=== PATIENT | female | born 1945 | race Caucasian/White ===

== ENCOUNTER → 2018-09-29 06:37 | Outpatient (CLI) | payer MEDICARE, SELFPAY ==
[2018-09-29 08:11] LABS: Add Manual Diff / Slide Review NO; Basophils Percent Auto 1.1 % (0-2); Hematocrit 37.6 % (36-46); Hemoglobin 12.7 g/dL (12.0-16.0); Lymphocytes Percent Auto 31.4 % (25-40); Mean Corpuscular HGB Conc 33.8 % (30-36); Mean Corpuscular Hemoglobin 33.9 PG (26-34); Mean Corpuscular Volume 100.5 fL (80-100); Monocytes Percent Auto 11.8 % (3-14); Neutrophils Absolute Auto 2500 /uL (3000-5900); Neutrophils Percent Auto 51.7 % (50-75); Platelet Count 215 X10^3/uL (150-400); Red Blood Cell Count 3.74 X10^6/uL (4.0-5.2); White Blood Cell Count 4.9 X10^3/uL (4.5-11.0)
[2018-09-29 08:17] LABS: Hemoglobin A1C% w Est Avg Glu 5.5 % (4.0-6.0)
[2018-09-29 08:30] LABS: Cholesterol 187 mg/dL (140-199); HDL Cholesterol 56 mg/dL (40-60); LDL Cholesterol Calculated 96 mg/dL (<100); Triglycerides 174 mg/dL (35-150)
[2018-09-29 09:01] LABS: Thyroid Stimulating Hormone 1.98 uIU/mL (0.47-4.68)
== END ==
PROVIDERS: PCP Family Medicine; Visit Provider Family Medicine
DX: I10 Essential (primary) hypertension (principal); Z13.1 Encounter for screening for diabetes mellitus
CPT/HCPCS: 36415; 80061; 83036; 84443; 85025

== ENCOUNTER 2019-03-10 06:57 | Emergency (ER) | payer MEDICARE, SELFPAY ==
--- NOTE | 2019-03-10 07:06 | ED.GENADULT ---
HPI - General Adult General Chief complaint: Upper Respiratory Symptoms Stated complaint: constant cough, mucous is green Time Seen by Provider: 03/10/19 07:05 Source: patient Mode of arrival: ambulatory Limitations: no limitations History of Present Illness HPI narrative: 73-year-old female here for evaluation of sinus congestion and sore throat in productive cough for the past week. No fevers. Has been doing [id number] decongestants at home. No recent travel. She states that the cough is worse at night. No rashes. Related Data Home Medications Medication Instructions Recorded Confirmed ASPIRIN (Aspirin Ec) 81 mg PO Q DAY #0 04/12/07 09/30/18 atenolol 25 mg PO QDAY #0 07/01/17 09/30/18 Previous Rx's Medication Instructions Recorded atorvastatin 40 mg tablet 40 mg PO HS #90 tab 10/12/18 losartan 100 mg tablet 100 mg PO Q DAY #90 tab 11/02/18 benzonatate [Tessalon Perles] 100 mg PO BID-TID PRN #20 cap 03/10/19 Allergies Allergy/AdvReac Type Severity Reaction Status Date / Time ampicillin [AMPICILLIN] Allergy Intermediate hives Unverified 03/11/18 11:59 Sulfa (Sulfonamide Allergy Intermediate Unverified 03/11/18 11:59 Antibiotics) [SULFA (SULFONAMIDE ANTIBIOTICS)] Review of Systems Constitutional Denies fever(s) and Denies headache(s) ENT Ears, Nose, Mouth, and Throat: Denies ear discharge, Denies headache(s), Reports sinus pressure, Reports sore throat and Reports throat swelling Respiratory Reports cough Gastrointestinal Gastrointestinal: Denies abdominal pain, Denies nausea and Denies vomiting Genitourinary Denies dysuria Musculoskeletal Denies myalgias and Denies arthralgias Integumentary/Breasts Denies rash Neurologic Denies headache(s) Allergic/Immunologic Denies urticaria and Reports throat swelling [facility] Medical History Breast cancer (Chronic ~2012) Coronary artery disease (Chronic ~2003) Foot pain (Chronic) Frequent UTI (Chronic) Hyperlipidemia (Chronic) Hypertension (Chronic) Surgical History (Updated 10/01/18 @ 07:03 by Tova Hays DO) History of lumpectomy (Resolved ~2012) History of mitral valve replacement (Resolved ~2003) S/P cataract extraction (Resolved) History of hip replacement (~2012) Status post coronary artery bypass graft (~2003) Social History marital status: lives independently: Yes 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[employer]) Smoking Status: Never smoker alcohol intake: current substance use type: does not use Social History marital status: lives independently: Yes 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[employer]) Smoking Status: Never smoker alcohol intake: current substance use type: does not use Exam Initial Vital Signs Initial Vital Signs: Vital Signs Temperature 98.7 F 03/10/19 07:07 Pulse Rate 93 H 03/10/19 07:07 Respiratory Rate 19 03/10/19 07:07 Blood Pressure 163/90 H 03/10/19 07:07 Pulse Oximetry 93 03/10/19 07:07 Const General: cooperative, healthy appearing, comfortable, well developed, well groomed and No acute distress Orientation: alert, awake and oriented x3 HENMT Head: normal to inspection and normocephalic Ears: TM's normal bilaterally Nose: external nose normal Face and sinus: normal facial exam Mouth: oral mucosae normal Throat: posterior oropharynx normal Resp Effort & Inspection: normal respiratory effort Auscultation: clear to auscultation bilaterally Cardio Rate: regular rate Rhythm: regular rhythm Pulses: radial pulses present Skin Rashes: no rashes Neuro General: alert, awake and oriented x3 Cognition: normal cognition Speech: speech normal Extrem General: normal to inspection and capillary refill normal Psych Appearance: grossly normal and well kempt Course Vital Signs - 8 hr 03/10/19 07:07 Temperature 98.7 F Pulse Rate 93 H Respiratory Rate 19 Blood Pressure 163/90 H Pulse Oximetry 93 Medical Decision Making MDM Narrative Medical decision making narrative: Nontoxic appearing lungs are clear. Afebrile. Low suspicion for pneumonia or flu. Suspect viral URI. We did discuss the use of decongestants. Will send home with Bindu Swanson. Informed her that this will not take her cough away but should help with the cough. She was given return precautions and follow-up instructions. She expressed understanding agreement plan. Discharge Plan Departure Patient Disposition: Home Clinical Impression: Upper respiratory infection Qualifiers: URI type: unspecified URI Qualified Code(s): J06.9 - Acute upper respiratory infection, unspecified Instructions: DI for Viral Upper Respiratory Infection -- Adult Activity Restrictions/Additional Instructions: Increased your fluid intake. I do recommend that you purchase an [id number]-[id number] decongestant such as Claritin or Jenise or Zyrtec. You can use the generic version of these medications. Take them as directed. Contact your primary care doctor for follow-up. Return to the emergency department for any new or worsening symptoms Prescriptions: New benzonatate [Tessalon Perles] 100 mg capsule 100 mg PO BID-TID PRN (Reason: cough) Qty: 20 RF: 0 No Action ASPIRIN (Aspirin Ec) 81 mg PO Q DAY Qty: 0 RF: 0 atenolol 25 MG tablet 25 mg PO QDAY Qty: 0 RF: 0 atorvastatin [Lipitor] 40 mg tablet 40 mg PO HS Qty: 90 RF: 3 losartan 100 mg tablet 100 mg PO Q DAY Qty: 90 RF: 2 Referrals: Tova Hays DO [Primary Care Provider] -
[2019-03-10 07:07] VITALS: BP 163/90; PULSE 93; RESP 19; TEMP 37.1; O2SAT 93; BMI 24.2
== END 2019-03-10 07:26 | disposition home or self-care (01) ==
PROVIDERS: Emergency Provider Emergency Medicine; PCP Family Medicine
DX: J06.9 Acute upper respiratory infection, unspecified (principal)
CPT/HCPCS: 99282

== ENCOUNTER → 2019-06-17 09:22 | Outpatient (CLI) | payer OTHER, SELFPAY ==
--- NOTE | 2019-06-17 | DI.RAD.S_ITS ---
PROCEDURE: XR ANKLE LT MIN 3V INDICATIONS: Left ankle injury TECHNIQUE: 3 views of the ankle were acquired. COMPARISON: None. FINDINGS: Bones: No fractures or dislocations. Ankle mortise is normally aligned. No suspicious bony lesions. Tibiotalar degenerative spurring. Posterior and plantar calcaneal spurs. There is also diffuse hindfoot and midfoot joint degeneration. There is irregularity at the tip of the lateral malleolus although this technically age-indeterminate the absence of prior studies Soft tissues: Lateral soft tissue swelling IMPRESSION: Lateral soft tissue swelling and cortical irregularity at the tip of the lateral limb loss. Findings suspicious for lateral malleolar tip fracture although limited evaluation given superimposed degenerative changes. If clinically warranted, followup short interval radiographs in 10 days could be performed to assess for healing sclerosis, or further evaluation with MRI. Chronic degenerative changes as above. Dictated by: Jean Flynn M.D. on 06/17/2019 at 11:40 Approved by: Jean Flynn M.D. on 06/17/2019 at 11:42
== END ==
PROVIDERS: PCP Family Medicine; Visit Provider Physician Assistant
DX: S99.912A Unspecified injury of left ankle, initial encounter (principal); M19.072 Primary osteoarthritis, left ankle and foot; M77.32 Calcaneal spur, left foot; M79.89 Other specified soft tissue disorders; X58.XXXA Exposure to other specified factors, initial encounter
CPT/HCPCS: 73610

== ENCOUNTER → 2019-08-25 07:14 | Outpatient (CLI) | payer MEDICARE, OTHER, SELFPAY ==
--- NOTE | 2019-08-25 | DI.MG.S_ITS ---
BILATERAL DIGITAL SCREENING MAMMOGRAM 3D/2D WITH CAD: 08/25/2019 CLINICAL: Routine screening. Personal history of right breast cancer. Comparison is made to exams dated: 11/25/2017 mammogram, 10/08/2016 mammogram, and 10/21/2016 mammogram - [facility]. There are scattered fibroglandular elements in both breasts. Current study was also evaluated with a Computer Aided Detection (CAD) system. There are benign post operative findings in the right breast. No significant masses, calcifications, or other findings are seen in either breast. There has been no significant interval change. IMPRESSION: There is no mammographic evidence of malignancy. A 1 year screening mammogram is recommended. This exam was interpreted at Station ID: [id number]. NOTE: For mammograms, a report in lay terms will be sent to the patient. Approximately 15% of breast malignancies will not be visualized mammographically. In the management of a palpable breast mass, a negative mammogram must not discourage biopsy of a clinically suspicious lesion. Electronically Signed By: Ayaka milton/cee:08/25/2019 08:45:21 letter sent: Normal Exam ACR BI-RADS Category 2: Benign Finding(s) [id number]
== END ==
PROVIDERS: PCP Family Medicine; Visit Provider Family Medicine
DX: Z12.31 Encounter for screening mammogram for malignant neoplasm of breast (principal); Z85.3 Personal history of malignant neoplasm of breast
CPT/HCPCS: 77063; 77067

== ENCOUNTER 2019-11-25 20:38 | Emergency (ER) | payer MEDICARE, SELFPAY ==
[2019-11-25 20:41] VITALS: BP 170/86; PULSE 78; RESP 18; TEMP 36.6; O2SAT 96
--- NOTE | 2019-11-25 20:41 | ED_ITS ---
HPI - Back Pain/Injury General Chief Complaint: Back Pain/Injury Stated Complaint: Fall, rib and finger pain Time Seen by Provider: 11/25/19 20:39 Source: patient Mode of arrival: Ambulatory Limitations: no limitations History of Present Illness HPI Narrative: 74-year-old female nonsmoker with cardiac history a presents with a chief complaint of left-sided rib pain and left 5th finger pain after she tripped on a rug earlier today. Her left-sided ribs hurt worse with deep breath, palpation or motion of her torso. She states that her left 5th finger was grossly angulated but she pulled it back in place somewhat. She is unable to make a fist completely as her left 5th finger still is in a nonanatomic position. She denies numbness, tingling or weakness. She states that she did not hit her head and has no neck or back pain. She has full recall and denies pain in her pelvis, hips, knees, ankles, or feet. MD Complaint: fall Onset (ago): hour(s) Duration: constant and progressively worsening Similar Symptoms Previously: No Location: left upper back Severity: moderate Quality: sharp Exacerbating factors: movement and deep breaths Context: fall and trauma Treatments prior to arrival: cold therapy Related Data Home Medications Medication Instructions Recorded Confirmed ASPIRIN (Aspirin Ec) 81 mg PO Q DAY #0 04/12/07 10/04/19 atenolol 25 mg PO QDAY #0 07/01/17 10/04/19 Previous Rx's Medication Instructions Recorded atorvastatin 40 mg tablet 40 mg PO HS #90 tab 10/12/18 benzonatate [Tessalon Perles] 100 mg PO BID-TID PRN #20 cap 03/10/19 losartan 100 mg tablet 100 mg PO DAILY #90 tab 08/12/19 hydrocodone-acetaminophen 1 tab PO Q4-6H PRN #20 tab 11/25/19 Allergies Allergy/AdvReac Type Severity Reaction Status Date / Time ampicillin [AMPICILLIN] Allergy Intermediate hives Verified 10/04/19 08:40 Sulfa (Sulfonamide Allergy Intermediate Verified 10/04/19 08:40 Antibiotics) [SULFA (SULFONAMIDE ANTIBIOTICS)] Review of Systems Constitutional Constitutional: Denies chills, Denies fatigue, Denies fever(s), Denies frequent falls, Denies lethargy and Denies weakness Eyes Eyes: Denies change in vision, Denies eye discharge, Denies irritation and Denies loss of vision ENT Ears, Nose, Mouth, and Throat: Denies change in voice, Denies dizziness, Denies neck pain, Denies sore throat and Denies throat swelling Cardiovascular Cardiovascular: Denies chest pain, Denies irregular heart rhythm, Denies lightheadedness, Denies palpitations, Denies dyspnea, Denies dyspnea on exertion and Denies orthopnea Respiratory Respiratory: Denies cough, Reports pain with cough, Denies dyspnea, Denies dyspnea on exertion and Denies wheezing Gastrointestinal Gastrointestinal: Denies abdominal pain, Denies change in bowel habits, Denies diarrhea, Denies nausea and Denies vomiting Genitourinary Genitourinary: Denies hematuria, Denies flank pain, Denies urinary incontinence and Denies urinary urgency Musculoskeletal Musculoskeletal: Denies back pain, Reports joint swelling, Reports limited range of motion, Denies muscle weakness, Denies neck pain, Denies numbness and Denies tingling Integumentary/Breasts Skin/Breast: Denies pruritus, Denies erythema, Denies rash and Denies wounds Neurologic Neurologic: Denies behavioral changes, Denies confusion, Denies dizziness, Denies frequent falls, Denies loss of vision, Denies numbness, Denies tingling and Denies weakness Psychiatric Psychiatric: Denies anxiety, Denies behavioral changes, Denies confusion, Denies depression, Denies homicidal ideation and Denies suicidal ideation Endocrine Endocrine: Denies fatigue, Denies flushing and Denies palpitations Hematologic/Lymphatic Hematologic/Lymphatic: Denies easy bruising Allergic/Immunologic Allergic/Immunologic: Denies urticaria, Denies throat swelling and Denies wheezing Patient History Medical History Breast cancer (Chronic ~2012) Coronary artery disease (Chronic ~2003) Foot pain (Chronic) Frequent UTI (Chronic) Hyperlipidemia (Chronic) Hypertension (Chronic) Surgical History History of hip replacement (~2012) History of lumpectomy (Resolved ~2012) History of mitral valve replacement (Resolved ~2003) S/P cataract extraction (Resolved) Status post coronary artery bypass graft (~2003) Social History marital status: lives independently: Yes occupational status: employed Smoking Status: Never smoker alcohol intake: current substance use type: does not use Smoking Status: Never smoker Substance Use Type: does not use Exam Narrative Exam Narrative: GENERAL: [74] year old patient appears stated age. Well- nourished, well-developed patient, in mild distress. GCS 15 HEAD: Atraumatic. Normocephalic. EYES: Pupils equal round and reactive. Extraocular motions intact. No scleral icterus. No injection or drainage. ENT: Nose without bleeding, purulent drainage. Throat without erythema, tonsillar hypertrophy or exudate. Airway patent. NECK: Trachea midline. Non tender CARDIOVASCULAR: Regular rate and rhythm without murmurs, gallops, or rubs. RESPIRATORY: Left lateral ribs tender to palpation, no swelling, bruising or crepitance. Clear to auscultation. Breath sounds equal bilaterally. No wheezes, rales, or rhonchi. GASTROINTESTINAL: Abdomen soft, non-tender, nondistended. EXTREMITIES: Left 5th finger obviously deformed, closed and isolated. Noted swelling and ecchymosis surrounding PIP No edema or joint tenderness. BACK: Nontender without deformity or crepitance. No flank tenderness. NEURO: AOx3. SKIN: No rash or erythema of visible areas Initial Vital Signs Initial Vital Signs: Vital Signs Temperature 97.9 F 11/25/19 20:41 Pulse Rate 78 11/25/19 20:41 Respiratory Rate 18 11/25/19 20:41 Blood Pressure 170/86 H 11/25/19 20:41 Pulse Oximetry 96 11/25/19 20:41 Procedures Nerve Block Nerve Block 1: Time out performed: No Local Anesthetic: lidocaine 1% Amount of anesthesia used (mL): 2 Side: left Nerve Blocks: digital Procedure Successful: Yes Patient Tolerated Procedure: Well Complications: none Orthopedic Joint Reduction Left Pinky Dislocation: Time Out Performed: Yes Side: left Joint Reduction Location: finger Analgesia: nerve block Local Anesthesia: lidocaine 1% Technique used: traction/counter-traction and direct manipulation Post-reduction neuro exam: intact Post-reduction vascular: intact Post Reduction X-Ray Obtained: No Splint Applied: Yes Patient Tolerated Procedure: Well Orthopedic Splinting/Casting Injury #1: Side: left Upper Extremity Injury Location: finger Upper Extremity Immobilizer: finger (other) Post splinting neuro exam: intact Post splinting vascular exam: intact Placed by: Nursing Course Orders Ordered: ED Orders 11/25/19 20:46 XR finger LT min 2V Stat XR ribs LT min 3V w CXR1V Stat Discontinued Medications Hydrocodone Bitart/Acetaminophen (Vicodin 5/325 Prepack) 1 bottle MISC SEEINSTR ONE Stop: 11/25/19 21:51 Last Admin: 11/25/19 21:56 Dose: 1 bottle Documented by: RICA Lidocaine HCl (Xylocaine 1%) 1 ml SUBCUT NOW ONE Stop: 11/25/19 21:26 Ondansetron HCl (Zofran Odt Prepack) 1 bottle MISC SEEINSTR ONE Stop: 11/25/19 21:51 Last Admin: 11/25/19 21:56 Dose: 1 bottle Documented by: RICA Vital Signs Vital signs: Vital Signs - 8 hr 11/25/19 20:41 11/25/19 22:07 Temperature 97.9 F Pulse Rate 78 75 Respiratory Rate 18 17 Blood Pressure 170/86 H 150/76 H Pulse Oximetry 96 100 Discharge Plan Departure Patient Disposition: Home Clinical Impression: Dislocation of finger PIP joint Qualifiers: Encounter type: initial encounter Qualified Code(s): S63.289A - Dislocation of proximal interphalangeal joint of unspecified finger, initial encounter Contusion of ribs Qualifiers: Encounter type: initial encounter Laterality: left Qualified Code(s): S20.212A - Contusion of left front wall of thorax, initial encounter Discharge Date/Time: 11/25/19 22:09 Instructions: DI for Finger Dislocation, DI for Rib Contusion Activity Restrictions/Additional Instructions: *You have been diagnosed with [left pinky finger dislocation and likely soft tissue injury as well as left-sided rib contusions] *What to do: *Take medications as directed *Follow up with your primary care provider in 2-3 days, call for an appointment. Let them know you were seen in the Emergency Department and that we ask that you be seen in follow up. 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
--- NOTE | 2019-11-25 20:46 | DI.RAD.S_ITS ---
PROCEDURE: XR FINGER LT MIN 2V INDICATIONS: obvious deformity s/p fall TECHNIQUE: AP hand, 2 views of the left 5th finger(s) acquired. COMPARISON: None. FINDINGS: Bones: Background of multilevel degenerative changes throughout the left hand. There is dorsal, ulnar subluxation of the left fifth finger at the level of the proximal interphalangeal joint with flexion at the left fifth metacarpophalangeal joint and extension at the proximal interphalangeal joint. Suggestion of possible nondisplaced fracture at the head of the left fifth finger proximal phalanx. There is also suggestion of cortical irregularity involving the head of the fifth metacarpal. There is overlying soft tissue edema. No suspicious bony lesions. Soft tissues: No suspicious soft tissue calcifications. IMPRESSION: 1. Dorsal, ulnar subluxation of the left fifth finger at the proximal interphalangeal joint with possible nondisplaced fracture involving the head of the fifth proximal phalanx. 2. Possible nondisplaced fracture at the head of the fifth metacarpal. Recommend correlating with examination for point tenderness in this region. Dictated by: Rolando Angeles M.D. on 11/25/2019 at 21:25 Approved by: Rolando Angeles M.D. on 11/25/2019 at 21:30
--- NOTE | 2019-11-25 20:46 | DI.RAD.S_ITS ---
PROCEDURE: XR RIBS LT MIN 3V W CXR1V INDICATIONS: fall with rib pain TECHNIQUE: 2 views of the left ribs were acquired, along with a single view chest. COMPARISON: [facility], , CHEST 2 VIEW, 03/09/2013, 9:45. FINDINGS: Surgical changes and devices: Multiple median sternotomy wires are intact. Stable postsurgical changes from prior valvular replacement and coronary revascularization procedure Bones and chest wall: No fractures or dislocations. No suspicious bony lesions. Overlying soft tissues appear unremarkable. Lungs and pleura: No pleural effusions or pneumothorax. Lungs appear clear. Mediastinum: Mediastinal contours appear normal. Heart size is normal. IMPRESSION: Chest without acute cardiopulmonary abnormality. No acute, displaced rib fractures identified. Dictated by: Rolando Angeles M.D. on 11/25/2019 at 21:22 Approved by: Rolando Angeles M.D. on 11/25/2019 at 21:25
[2019-11-25] MEDS: ONDANSETRON 4 MG ODT PREPACK 1 BOTTLE MISC (21:56)
[2019-11-25] MEDS: HYDROCODONE/ACET 5/325 PREPACK 1 BOTTLE MISC (21:56)
[2019-11-25 22:07] VITALS: BP 150/76; PULSE 75; RESP 17; O2SAT 100
== END 2019-11-25 22:09 | disposition home or self-care (01) ==
PROVIDERS: Emergency Provider Emergency Medicine; Family Provider Family Medicine; PCP Family Medicine
DX: S63.287A Dislocation of proximal interphalangeal joint of left little finger, initial encounter (principal); S20.212A Contusion of left front wall of thorax, initial encounter; W01.0XXA Fall on same level from slipping, tripping and stumbling without subsequent striking against object, initial encounter
CPT/HCPCS: 26770; 64450; 71101; 73140; 99281; 99283

== ENCOUNTER 2019-12-01 01:14 | Emergency (ER) | payer MEDICARE, SELFPAY ==
[2019-12-01 01:25] VITALS: BP 193/94; PULSE 83; RESP 17; TEMP 36.8; O2SAT 98; BMI 27.7
--- NOTE | 2019-12-01 01:27 | ED.CHESTPAIN ---
HPI - Chest Pain General Chief Complaint: Chest Pain Stated Complaint: pain on left rib area under breast Time Seen by Provider: 12/01/19 01:23 Source: patient Mode of arrival: Ambulatory Limitations: no limitations History of Present Illness HPI narrative: Patient is 74-year-old female who presents with left-sided rib pain ongoing for the last 6 days. She actually fell on 11/25/2019 on her left side her finger was dislocated she has been having pain in her left ribs ever since. She was given hydrocodone to help with pain however she says it hasn't really been helping. This evening her pain got significantly worse. Hurts every time she breathes or moves. Is a pain is nonradiating. She does have a history of valvular disease and coronary artery disease MD complaint: chest pain Onset (ago): day(s) Duration: constant Onset: during exertion Pain location: left chest Related Data Home Medications Medication Instructions Recorded Confirmed ASPIRIN (Aspirin Ec) 81 mg PO Q DAY #0 04/12/07 10/04/19 atenolol 25 mg PO QDAY #0 07/01/17 10/04/19 Previous Rx's Medication Instructions Recorded benzonatate [Tessalon Perles] 100 mg PO BID-TID PRN #20 cap 03/10/19 losartan 100 mg tablet 100 mg PO DAILY #90 tab 08/12/19 hydrocodone-acetaminophen 1 tab PO Q4-6H PRN #20 tab 11/25/19 atorvastatin 40 mg tablet 40 mg PO HS #90 tab 11/29/19 hydrocodone-acetaminophen [Avalon] 1 tab PO Q6H PRN #10 tab 12/01/19 Allergies Allergy/AdvReac Type Severity Reaction Status Date / Time ampicillin [AMPICILLIN] Allergy Intermediate hives Verified 10/04/19 08:40 Sulfa (Sulfonamide Allergy Intermediate Verified 10/04/19 08:40 Antibiotics) [SULFA (SULFONAMIDE ANTIBIOTICS)] Review of Systems Review of Systems Narrative: GENERAL: Denies chills, fatigue, malaise, fever, sweats, travel HEENT: Denies sinus pain, ear pain, sore throat, difficulty swallowing, neck pain RESPIRATORY: Denies dyspnea, cough, wheezing, hemoptysis, sputum. CARDIOVASCULAR: See HPI GASTROINTESTINAL: Denies nausea, vomiting, abdominal pain, diarrhea, constipation, melena. : Denies dysuria, frequency, incontinence, hematuria, urinary retention, flank pain. MUSCULOSKELETAL: Denies weakness, joint pain, or bony pain SKIN: No rash, no erythema, no pruritus NEUROLOGIC: Denies weakness, dizziness, headache, numbness, change in speech, confusion PSYCHIATRIC: No concerning psychosocial issues. 12 point review of systems is negative except for those stated above and HPI Patient History Medical History Breast cancer (Chronic ~2012) Coronary artery disease (Chronic ~2003) Foot pain (Chronic) Frequent UTI (Chronic) Hyperlipidemia (Chronic) Hypertension (Chronic) Surgical History History of hip replacement (~2012) History of lumpectomy (Resolved ~2012) History of mitral valve replacement (Resolved ~2003) S/P cataract extraction (Resolved) Status post coronary artery bypass graft (~2003) Social History marital status: lives independently: Yes occupational status: employed Smoking Status: Never smoker alcohol intake: current substance use type: does not use Smoking Status: Never smoker Substance Use Type: does not use Exam Initial Vital Signs Initial Vital Signs: Vital Signs Temperature 98.2 F 12/01/19 01:25 Pulse Rate 83 12/01/19 01:25 Respiratory Rate 17 12/01/19 01:25 Blood Pressure 193/94 H 12/01/19 01:25 Pulse Oximetry 98 12/01/19 01:25 GENERAL: Alert well-appearing elderly HEENT: Head atraumatic,EOMI, pupils reactive CARDIOVASCULAR: Regular rate and rhythm without murmurs, rubs or gallops. Pain under left breast reproducible with palpation possible mild continue RESPIRATORY: Breath sounds equal bilaterally, no wheezes rales or rhonchi. ABDOMEN: Soft, nontender. Normoactive bowel sounds all 4 quadrants. No guarding or rebound. EXTREMITIES: Normal range of motion, no clubbing or edema. Neurovascularly intact NEUROLOGICAL: Alert and oriented x4.Normal gait and speech. Cranial nerves II through XII grossly intact. SKIN: Warm, dry, no laceration, no petechiae, no rashes or lesions. Course Orders Ordered: ED Orders 12/01/19 01:27 EKG-12 Lead Stat 12/01/19 01:33 XR ribs LT min 3V w CXR1V Stat 12/01/19 02:00 B Type Natriuretic Peptide Stat Complete Blood Count AUTO DIFF Stat Comprehensive Metabolic Panel Stat Lipase Stat Partial Thromboplastin Time Stat Prothrombin Time INR Stat Troponin & CK Cardiac Panel Stat Discontinued Medications Aspirin (Aspirin Chew) 324 mg PO NOW ONE Stop: 12/01/19 01:28 Last Admin: 12/01/19 02:55 Dose: Not Given Documented by: JAYME Ketorolac Tromethamine (Toradol) 15 mg IV NOW ONE Stop: 12/01/19 01:34 Last Admin: 12/01/19 02:09 Dose: 15 mg Documented by: NAGI Vital Signs Vital signs: Vital Signs - 8 hr 12/01/19 01:25 12/01/19 02:58 Temperature 98.2 F Pulse Rate 83 66 Respiratory Rate 17 14 Blood Pressure 193/94 H Blood Pressure [Right Arm] 132/77 Pulse Oximetry 98 98 MDM - Chest Pain Lab Data Attestation: I reviewed the patient's lab results. Result diagrams: 12/01/19 02:00 12/01/19 02:00 Labs: Lab Results 12/01/19 12/01/19 12/01/19 Range/Units 02:00 02:00 02:00 WBC 5.9 (4.5-11.0) X10^3/uL RBC 3.59 L (4.0-5.2) X10^6/uL Hgb 12.5 (12.0-16.0) g/dL Hct 35.8 L (36-46) % MCV 99.8 (80-100) fL MCH 34.9 H (26-34) PG MCHC 35.0 (30-36) % RDW 12.2 (11.6-14.8) % Plt Count 213 (150-400) X10^3/uL Neut % (Auto) 55.1 (50-75) % Lymph % (Auto) 25.5 (25-40) % [place] % (Auto) 15.7 H (3-14) % Eos % (Auto) 3.4 (2-4) % Baso % (Auto) 0.3 (0-2) % Neut # (Auto) 3200 (2871-2898) /uL Lymph # (Auto) 1500 (4633-4668) /uL [place] # (Auto) 900 (0-900) /uL Eos # (Auto) 200 (0-450) /uL Baso # (Auto) 0 (0-100) /uL PT 11.3 (10.1-12.7) SECONDS INR 1.0 (0.9-1.3) APTT 31 (26.4-36.2) SECONDS Sodium 132 L (137-145) mmol/L Potassium 3.8 (3.4-5.1) mmol/L Chloride 97 L (98-107) mmol/L Carbon Dioxide 24 (22-32) mmol/L BUN 12 (7-17) mg/dL Creatinine 0.60 (0.52-1.04) mg/dL Estimated GFR > 60.0 (>60) mL/min BUN/Creatinine Ratio 20.0 (6-22) Glucose 104 (80-110) mg/dL Calcium 10.1 (8.4-10.2) mg/dL Total Bilirubin 1.0 (0.2-1.3) mg/dL AST 52 H (14-36) IU/L ALT 41 H (<35) IU/L Alkaline Phosphatase 101 (38-126) U/L Total Creatine Kinase 83 (30-135) U/L CK-MB (CK-2) TNP CK-MB (CK-2) Rel Index TNP Troponin I < 0.012 (0.01-0.034) ng/mL B-Natriuretic Peptide 191 H (<100) Total Protein 8.0 (6.3-8.2) g/dL Albumin 4.7 (3.5-5.0) g/dL Globulin 3.3 (1.7-4.1) g/dL Albumin/Globulin Ratio 1.4 (1.0-2.8) Lipase 166 (23-300) U/L Imaging Data left ribs: Attestation: I personally reviewed and interpreted this imaging study as follows: My Impression: No acute fracture no pneumothorax, similar to prior ECG Data Attestation: I personally reviewed and interpreted this ECG as follows: Prior ECG tracings: not available for review Interpretation: Sinus rhythm rate 72 p.r. interval 152 QRS [address] elevation or depression no priors to [facility] Narrative Medical decision making narrative: Patient fell 5-6 days ago on her left side having pain ever since. Pain is worse with movement this is likely musculoskeletal rather than heart. X-ray is negative for any acute fracture. She is given Toradol here in the emergency department. She has an appointment with her primary care provider in 2 days his refilled her prescription for hydrocodone. She has been instructed by respiratory therapy on incentive spirometer. Discharge Plan Departure Patient Disposition: Home Clinical Impression: Contusion of ribs Qualifiers: Encounter type: subsequent encounter Laterality: left Qualified Code(s): S20.212D - Contusion of left front wall of thorax, subsequent encounter Discharge Date/Time: 12/01/19 03:16 Instructions: DI for Rib Contusion Activity Restrictions/Additional Instructions: *You have been diagnosed with left rib contusion *What to do: Use incentive spirometer few times an hour to help prevent pneumonia *Continue to take medications as directed Avalon 1 tablet every 6 hours if needed for severe pain--> SENT TO [facility] [place] Ibuprofen 600 mg every 6 hours if needed for [id number] pain *Follow up with your primary care provider in 2-3 days *Return to ER if you should have increasing pain, shortness of breath or any new, worsening or concerning symptoms Prescriptions: New hydrocodone-acetaminophen [Avalon] 5-325 mg tablet 1 tab PO Q6H PRN (Reason: pain) Qty: 10 RF: 0 No Action ASPIRIN (Aspirin Ec) 81 mg PO Q DAY Qty: 0 RF: 0 atenolol 25 MG tablet 25 mg PO QDAY Qty: 0 RF: 0 losartan 100 mg tablet 100 mg PO DAILY Qty: 90 RF: 3 atorvastatin [Lipitor] 40 mg tablet 40 mg PO HS Qty: 90 RF: 3 benzonatate [Tessalon Perles] 100 mg capsule 100 mg PO BID-TID PRN (Reason: cough) Qty: 20 RF: 0 hydrocodone-acetaminophen 5-325 mg tablet 1 tab PO Q4-6H PRN (Reason: pain) Qty: 20 RF: 0 Referrals: Tova Hays DO [Primary Care Provider] -
--- NOTE | 2019-12-01 01:33 | DI.RAD.S_ITS ---
PROCEDURE: XR RIBS LT MIN 3V W CXR1V INDICATIONS: pain, fall TECHNIQUE: 2 views of the left ribs were acquired, along with a single view chest. COMPARISON: [facility], CR, XR RIBS LT MIN 3V W CXR1V, 11/25/2019, 20:46. FINDINGS: Surgical changes and devices: Postoperative changes are seen, with sternotomy wires, mediastinal clips, and a valve prosthesis. Bones and chest wall: At least one mildly displaced rib fracture can be seen involving left lateral 5th rib. This cannot be seen on the prior plain film study dated 11/25/19, even in retrospect. Only 11 well-developed pairs of ribs can be seen. Age-appropriate bony degenerative changes are seen. No suspicious bony lesions. Overlying soft tissues appear unremarkable. Lungs and pleura: An incomplete inspiratory result is noted, causing a crowded appearance to the lung markings. No focal infiltrates are seen. No pneumothorax or significant pleural effusions are seen. Mediastinum: The cardiac contours are within normal limits. The aorta demonstrates calcification and tortuosity. IMPRESSION: Mildly displaced left lateral 5th rib fracture, which is new compared to the prior examination. Incidental note is made that only 11 well-developed pairs of ribs can be seen. Postoperative and degenerative changes are seen. Note: Rib fracture discussed by telephone with Dr. Mckeon, at 1001 hrs. [place] time on December 01, 2019, as this is discrepant from the preliminary report. Dictated by: Scot Austin M.D. on 12/01/2019 at 8:56 Approved by: Scot Austin M.D. on 12/01/2019 at 8:59
[2019-12-01] MEDS: KETOROLAC 60 MG/2 ML VIAL 15 MG IV (02:09)
[2019-12-01 02:12] LABS: Add Manual Diff / Slide Review NO; Basophils Absolute Auto 0 /uL (0-100); Basophils Percent Auto 0.3 % (0-2); Eosinophils Absolute Auto 200 /uL (0-450); Eosinophils Percent Auto 3.4 % (2-4); Hematocrit 35.8 % (36-46); Hemoglobin 12.5 g/dL (12.0-16.0); Lymphocytes Absolute Auto 1500 /uL (1100-4500); Lymphocytes Percent Auto 25.5 % (25-40); Mean Corpuscular Hemoglobin 34.9 PG (26-34); Mean Corpuscular Volume 99.8 fL (80-100); Monocytes Absolute Auto 900 /uL (0-900); Monocytes Percent Auto 15.7 % (3-14); Neutrophils Absolute Auto 3200 /uL (1500-7000); Neutrophils Percent Auto 55.1 % (50-75); Platelet Count 213 X10^3/uL (150-400); Red Blood Cell Count 3.59 X10^6/uL (4.0-5.2); Red Cell Distribution Width 12.2 % (11.6-14.8); White Blood Cell Count 5.9 X10^3/uL (4.5-11.0)
[2019-12-01 02:19] LABS: Prothrombin Time 11.3 SECONDS (10.1-12.7)
[2019-12-01 02:20] LABS: Alanine Aminotransferase 41 IU/L (<35); Albumin 4.7 g/dL (3.5-5.0); Albumin Globulin Ratio 1.4 (1.0-2.8); Alkaline Phosphatase 101 U/L (38-126); Aspartate Aminotransferase 52 IU/L (14-36); Blood Urea Nitrogen 12 mg/dL (7-17); Calcium 10.1 mg/dL (8.4-10.2); Carbon Dioxide 24 mmol/L (22-32); Chloride 97 mmol/L (98-107); Creatine Kinase 83 U/L (30-135); Estimated Glomerular Filt Rate > 60.0 mL/min (>60); Globulin 3.3 g/dL (1.7-4.1); Glucose 104 mg/dL (80-110); HEMOLYSIS 32 (0-50); Lipase 166 U/L (23-300); Potassium 3.8 mmol/L (3.4-5.1); Sodium 132 mmol/L (137-145)
[2019-12-01 02:22] LABS: PTT Partial Thromboplastin Tim 31 SECONDS (26.4-36.2)
[2019-12-01 02:32] LABS: Troponin I < 0.012 ng/mL (0.01-0.034)
[2019-12-01 02:37] LABS: B Type Natriuretic Peptide 191 (<100)
[2019-12-01 02:58] VITALS: BP 132/77; PULSE 66; RESP 14; O2SAT 98
== END 2019-12-01 03:16 | disposition home or self-care (01) ==
PROVIDERS: Emergency Provider Emergency Medicine; Family Provider Family Medicine; PCP Family Medicine
DX: S20.212A Contusion of left front wall of thorax, initial encounter (principal); W18.30XA Fall on same level, unspecified, initial encounter
CPT/HCPCS: 36415; 71101; 80053; 82550; 83690; 83880; 84484; 85025; 85610; 85730; 93005; 96374; 99284; J1885

== ENCOUNTER → 2019-12-13 09:47 | Outpatient (CLI) | payer MEDICARE, SELFPAY ==
--- NOTE | 2019-12-13 09:50 | DI.RAD.S_ITS ---
PROCEDURE: XR FINGER LT MIN 2V INDICATIONS: fall, dislocation, pinky finger pain TECHNIQUE: AP hand, 2 views of the 5th digit were obtained. COMPARISON: [facility], , XR FINGER LT MIN 2V, 11/25/2019, 20:46. FINDINGS: Bones: There is dorsal dislocation of the middle phalanx with respect to the proximal phalanx of the 5th digit. Ulnar displacement of the middle and distal phalanges of the 5th digit are evident with respect to the proximal phalanx. There may be a subtle avulsion fracture at the proximal interphalangeal joint. The origin is uncertain. No new fractures or dislocations are evident. Degenerative changes of the hand are unchanged. Soft tissues: No suspicious soft tissue calcifications. IMPRESSION: Dorsal dislocation of the proximal interphalangeal joint with an associated small avulsion fracture. Dictated by: Sandip Randhawa M.D. on 12/13/2019 at 9:36 Approved by: Sandip Randhawa M.D. on 12/13/2019 at 9:37
== END ==
PROVIDERS: PCP Family Medicine; Visit Provider Family Medicine
DX: S62.617A Displaced fracture of proximal phalanx of left little finger, initial encounter for closed fracture (principal); W19.XXXA Unspecified fall, initial encounter
CPT/HCPCS: 73140

== ENCOUNTER → 2020-05-25 13:30 | Outpatient (CLI) | payer MEDICARE, SELFPAY | PROVIDERS: PCP Family Medicine; Referring Provider Family Medicine; Visit Provider Family Medicine | DX: M85.851 Other specified disorders of bone density and structure, right thigh (principal); Z78.0 Asymptomatic menopausal state; Z85.3 Personal history of malignant neoplasm of breast; Z87.891 Personal history of nicotine dependence | CPT/HCPCS: 77080 ==

== ENCOUNTER → 2020-08-30 07:48 | Outpatient (CLI) | payer MEDICARE, SELFPAY ==
--- NOTE | 2020-08-30 | DI.MG.S_ITS ---
BILATERAL DIGITAL SCREENING MAMMOGRAM 3D/2D WITH CAD POST LUMPECTOMY: 08/30/2020 CLINICAL: Routine screening. Personal history of right breast cancer. Comparison is made to exams dated: 08/25/2019 mammogram, 11/25/2017 mammogram, and 10/08/2016 mammogram - [facility]. There are scattered fibroglandular elements in both breasts. Current study was also evaluated with a Computer Aided Detection (CAD) system. There are benign post operative findings in the right breast. No significant masses, calcifications, or other findings are seen in either breast. There has been no significant interval change. IMPRESSION: BENIGN There is no mammographic evidence of malignancy. A 1 year screening mammogram is recommended. This exam was interpreted at Station ID: [id number]. NOTE: For mammograms, a report in lay terms will be sent to the patient. Approximately 15% of breast malignancies will not be visualized mammographically. In the management of a palpable breast mass, a negative mammogram must not discourage biopsy of a clinically suspicious lesion. Electronically Signed By: Mario Goss M.D., jr/cee:08/30/2020 08:27:40 letter sent: Normal Exam ACR BI-RADS Category 2: Benign Finding(s) 3342F
== END ==
PROVIDERS: PCP Family Medicine; Referring Provider Family Medicine; Visit Provider Family Medicine
DX: Z12.31 Encounter for screening mammogram for malignant neoplasm of breast (principal); Z85.3 Personal history of malignant neoplasm of breast
CPT/HCPCS: 77063; 77067

== ENCOUNTER → 2020-10-11 07:03 | Outpatient (CLI) | payer MEDICARE, SELFPAY ==
[2020-10-11 08:35] LABS: Alanine Aminotransferase 52 IU/L (<35); Albumin 4.2 g/dL (3.5-5.0); Albumin Globulin Ratio 1.3 (1.0-2.8); Alkaline Phosphatase 80 U/L (38-126); Aspartate Aminotransferase 51 IU/L (14-36); BUN Creatinine Ratio 21.1 (6-22); Bilirubin Total 0.6 mg/dL (0.2-1.3); Blood Urea Nitrogen 15 mg/dL (7-17); Calcium 9.6 mg/dL (8.4-10.2); Carbon Dioxide 29 mmol/L (22-32); Chloride 100 mmol/L (98-107); Cholesterol 146 mg/dL (140-199); Estimated Glomerular Filt Rate > 60.0 mL/min (>60); Globulin 3.3 g/dL (1.7-4.1); Glucose 111 mg/dL (80-110); HDL Cholesterol 38 mg/dL (40-60); HEMOLYSIS < 15 (0-50); LDL Cholesterol Calculated 74 mg/dL (<100); Potassium 3.8 mmol/L (3.4-5.1); Sodium 136 mmol/L (137-145); Total Protein 7.5 g/dL (6.3-8.2); Triglycerides 168 mg/dL (35-150)
== END ==
PROVIDERS: PCP Family Medicine; Referring Provider Family Medicine; Visit Provider Family Medicine
DX: Z13.1 Encounter for screening for diabetes mellitus (principal); I25.10 Atherosclerotic heart disease of native coronary artery without angina pectoris
CPT/HCPCS: 36415; 80053; 80061

== ENCOUNTER → 2020-10-11 09:09 | Outpatient (CLI) | payer MEDICARE, SELFPAY ==
[2020-10-12 08:36] LABS: Fecal Immunochemical Test Negative (Negative)
== END ==
PROVIDERS: PCP Family Medicine; Referring Provider Family Medicine; Visit Provider Family Medicine
DX: Z12.11 Encounter for screening for malignant neoplasm of colon (principal); Z13.1 Encounter for screening for diabetes mellitus; I25.10 Atherosclerotic heart disease of native coronary artery without angina pectoris
CPT/HCPCS: 36415; 80053; 80061; 82274

== ENCOUNTER → 2021-09-21 08:02 | Outpatient (CLI) | payer MEDICARE, SELFPAY ==
--- NOTE | 2021-09-21 | DI.MG.S_ITS ---
BILATERAL DIGITAL SCREENING MAMMOGRAM 3D/2D WITH CAD: 09/21/2021 CLINICAL: Routine screening. Personal history of right breast cancer. Comparison is made to exams dated: 08/25/2019 mammogram, 11/25/2017 mammogram, 11/05/2016 mammogram, 10/08/2016 mammogram, and 08/30/[address] - [facility]. There are scattered fibroglandular elements in both breasts. Current study was also evaluated with a Computer Aided Detection (CAD) system. There are benign calcifications in both breasts. There also are benign post operative findings in the right breast. No significant masses, calcifications, or other findings are seen in either breast. There has been no significant interval change. IMPRESSION: BENIGN There is no mammographic evidence of malignancy. A 1 year screening mammogram is recommended. This exam was interpreted at Station ID: [id number]. NOTE: For mammograms, a report in lay terms will be sent to the patient. Approximately 15% of breast malignancies will not be visualized mammographically. In the management of a palpable breast mass, a negative mammogram must not discourage biopsy of a clinically suspicious lesion. Electronically Signed By: Georgi aguiar/cee:09/21/2021 08:38:57 letter sent: Normal Exam ACR BI-RADS Category 2: Benign Finding(s) 3342F
== END ==
PROVIDERS: PCP Family Medicine; Referring Provider Family Medicine; Visit Provider Family Medicine
DX: Z12.31 Encounter for screening mammogram for malignant neoplasm of breast (principal); Z85.3 Personal history of malignant neoplasm of breast
CPT/HCPCS: 77063; 77067

== ENCOUNTER → 2021-12-12 06:39 | Outpatient (CLI) | payer MEDICARE, SELFPAY ==
[2021-12-12 08:53] LABS: Add Manual Diff / Slide Review NO; Basophils Absolute Auto 100 /uL (0-100); Eosinophils Absolute Auto 300 /uL (0-450); Eosinophils Percent Auto 5.2 % (2-4); Hemoglobin 12.6 g/dL (12.0-16.0); Lymphocytes Absolute Auto 1700 /uL (1100-4500); Mean Corpuscular HGB Conc 34.1 % (30-36); Mean Corpuscular Volume 93.8 fL (80-100); Monocytes Absolute Auto 600 /uL (0-900); Monocytes Percent Auto 10.8 % (3-14); Neutrophils Absolute Auto 2900 /uL (1500-7000); Platelet Count 249 X10^3/uL (150-400); Red Blood Cell Count 3.95 X10^6/uL (4.0-5.2); Red Cell Distribution Width 11.9 % (11.6-14.8); White Blood Cell Count 5.6 X10^3/uL (4.5-11.0)
[2021-12-12 09:02] LABS: Alanine Aminotransferase 18 IU/L (<35); Albumin 4.2 g/dL (3.5-5.0); Albumin Globulin Ratio 1.5 (1.0-2.8); Alkaline Phosphatase 65 U/L (38-126); Aspartate Aminotransferase 25 IU/L (14-36); BUN Creatinine Ratio 15.5 (6-22); Bilirubin Total 0.5 mg/dL (0.2-1.3); Blood Urea Nitrogen 11 mg/dL (7-17); Calcium 9.4 mg/dL (8.4-10.2); Carbon Dioxide 29 mmol/L (22-32); Chloride 103 mmol/L (98-107); Cholesterol 172 mg/dL (140-199); Estimated Glomerular Filt Rate > 60.0 mL/min (>60); Globulin 2.8 g/dL (1.7-4.1); Glucose 96 mg/dL (80-110); HDL Cholesterol 41 mg/dL (40-60); HEMOLYSIS < 15 (0-50); LDL Cholesterol Calculated 84 mg/dL (<100); Potassium 4.3 mmol/L (3.4-5.1); Sodium 137 mmol/L (137-145); Triglycerides 234 mg/dL (35-150)
[2021-12-13 13:38] LABS: Fecal Immunochemical Test Negative (Negative)
== END ==
PROVIDERS: PCP Family Medicine; Referring Provider Family Medicine; Visit Provider Family Medicine
DX: I25.10 Atherosclerotic heart disease of native coronary artery without angina pectoris (principal); E78.5 Hyperlipidemia, unspecified; Z12.11 Encounter for screening for malignant neoplasm of colon; I10 Essential (primary) hypertension
CPT/HCPCS: 36415; 80053; 80061; 82274; 85025

== ENCOUNTER → 2022-01-04 09:56 | Outpatient (CLI) | payer MEDICARE, SELFPAY ==
--- NOTE | 2022-01-04 09:59 | DI.RAD.S_ITS ---
PROCEDURE: XR FOOT LT MIN 3V INDICATIONS: L foot infection, pain TECHNIQUE: 3 views of the foot were acquired. COMPARISON: None. FINDINGS: Bones: No fractures or dislocations. Mild to moderate degeneration of the 1st metatarsophalangeal joint and midfoot. No suspicious bony lesions. Soft tissues: No tibiotalar joint effusion. Medial soft tissue prominence adjacent to the 1st MTP joint. IMPRESSION: Medial soft tissue prominence adjacent to the 1st MTP joint. Dictated by: Giovanni Salazar M.D. on 01/04/2022 at 10:34 Approved by: Giovanni Salazar M.D. on 01/04/2022 at 10:37
== END ==
PROVIDERS: PCP Family Medicine; Referring Provider Physician Assistant; Visit Provider Physician Assistant
DX: L08.9 Local infection of the skin and subcutaneous tissue, unspecified (principal)
CPT/HCPCS: 73630; 87070; 87077; 87147; 87185; 87186; 87205

== ENCOUNTER → 2022-01-04 10:03 | Outpatient (CLI) | payer MEDICARE, SELFPAY | PROVIDERS: PCP Family Medicine; Visit Provider Physician Assistant | DX: L08.9 Local infection of the skin and subcutaneous tissue, unspecified (principal) | CPT/HCPCS: 87070; 87075; 87077; 87147; 87186; 87205 ==

== ENCOUNTER → 2022-09-23 09:12 | Outpatient (CLI) | payer MEDICARE, SELFPAY ==
--- NOTE | 2022-09-23 | DI.MG.S_ITS ---
BILATERAL DIGITAL SCREENING MAMMOGRAM 3D/2D WITH CAD POST LUMPECTOMY: 09/23/2022 CLINICAL: Routine screening. Personal history of right breast cancer. Comparison is made to exams dated: 09/21/2021 mammogram, 08/30/2020 mammogram, and 08/25/2019 mammogram - [facility]. There are scattered areas of fibroglandular density in both breasts (category b / 25%-50% glandular tissue). Current study was also evaluated with a Computer Aided Detection (CAD) system. There are benign calcifications in both breasts. There also are benign post operative findings in the right breast. No significant masses, calcifications, or other findings are seen in either breast. There has been no significant interval change. IMPRESSION: BENIGN There is no mammographic evidence of malignancy. A 1 year screening mammogram is recommended. This exam was interpreted at Station ID: [id number]. NOTE: For mammograms, a report in lay terms will be sent to the patient. Approximately 15% of breast malignancies will not be visualized mammographically. In the management of a palpable breast mass, a negative mammogram must not discourage biopsy of a clinically suspicious lesion. Electronically Signed By: Rolando tavera/cee:09/23/2022 12:39:12 letter sent: Normal Exam ACR BI-RADS Category 2: Benign Finding(s) 3342F
== END ==
PROVIDERS: PCP Family Medicine; Referring Provider Family Medicine; Visit Provider Family Medicine
DX: Z12.31 Encounter for screening mammogram for malignant neoplasm of breast (principal); Z85.3 Personal history of malignant neoplasm of breast
CPT/HCPCS: 77063; 77067

== ENCOUNTER → 2022-10-14 06:38 | Outpatient (CLI) | payer MEDICARE, SELFPAY ==
[2022-10-14 09:27] LABS: Add Manual Diff / Slide Review NO; Basophils Absolute Auto 0 /uL (0-100); Basophils Percent Auto 0.8 % (0-2); Eosinophils Absolute Auto 300 /uL (0-450); Eosinophils Percent Auto 5.4 % (2-4); Hematocrit 37.5 % (36-46); Hemoglobin 12.6 g/dL (12.0-16.0); Lymphocytes Absolute Auto 1400 /uL (1100-4500); Mean Corpuscular HGB Conc 33.7 % (30-36); Mean Corpuscular Hemoglobin 31.4 PG (26-34); Mean Corpuscular Volume 93.1 fL (80-100); Monocytes Absolute Auto 600 /uL (0-900); Monocytes Percent Auto 11.4 % (3-14); Neutrophils Absolute Auto 2500 /uL (1500-7000); Neutrophils Percent Auto 52.4 % (50-75); Platelet Count 223 X10^3/uL (150-400); Red Blood Cell Count 4.02 X10^6/uL (4.0-5.2); Red Cell Distribution Width 12.4 % (11.6-14.8); White Blood Cell Count 4.8 X10^3/uL (4.5-11.0)
[2022-10-14 09:55] LABS: Alanine Aminotransferase 25 IU/L (<35); Albumin 4.3 g/dL (3.5-5.0); Albumin Globulin Ratio 1.5 (1.0-2.8); Alkaline Phosphatase 80 U/L (38-126); Aspartate Aminotransferase 25 IU/L (14-36); BUN Creatinine Ratio 21.4 (6-22); Bilirubin Total 0.6 mg/dL (0.2-1.3); Blood Urea Nitrogen 15 mg/dL (7-17); Calcium 8.7 mg/dL (8.4-10.2); Carbon Dioxide 26 mmol/L (22-32); Chloride 102 mmol/L (98-107); Cholesterol 163 mg/dL (140-199); Estimated Glomerular Filt Rate > 60 mL/min (>60); Globulin 2.9 g/dL (1.7-4.1); Glucose 88 mg/dL (80-110); HDL Cholesterol 45 mg/dL (40-60); HEMOLYSIS < 15 (0-50); LDL Cholesterol Calculated 81 mg/dL (<100); Potassium 3.9 mmol/L (3.4-5.1); Sodium 138 mmol/L (137-145); Total Protein 7.2 g/dL (6.3-8.2); Triglycerides 186 mg/dL (35-150)
[2022-10-14 09:58] LABS: TSH w/ Reflex to FT4 1.64 uIU/mL (0.47-4.68)
[2022-10-14 10:21] LABS: Ferritin 323 ng/mL (11-264)
== END ==
PROVIDERS: PCP Family Medicine; Referring Provider Family Medicine; Visit Provider Family Medicine
DX: I10 Essential (primary) hypertension (principal); L65.9 Nonscarring hair loss, unspecified; E78.2 Mixed hyperlipidemia
CPT/HCPCS: 36415; 80053; 80061; 82728; 84443; 85025

== ENCOUNTER → 2023-02-10 10:56 | Outpatient (CLI) | payer MEDICARE, SELFPAY ==
[2023-02-10 14:22] LABS: Appearance Urine UA CLEAR; Bilirubin Urine UA NEGATIVE (NEGATIVE); Color Urine UA YELLOW; Glucose Urine UA NEGATIVE (Negative); Ketones Urine UA NEGATIVE (NEGATIVE); Leukocyte Esterase Urine UA 1+ (NEGATIVE); Nitrite Urine UA NEGATIVE (Negative); Occult Blood Urine UA 1+ (Negative); Protein Urine UA NEGATIVE (Negative)
[2023-02-10 14:30] LABS: pH Urine UA 7.5 (4.5-8.0)
[2023-02-10 14:53] LABS: Bacteria Urine Occasional (0-1); Culture Indicated Urine Specimen Cultured; RBC Urine 1-5/HPF (0-5/HPF); Squamous Epithelial Cell Urine 5-10 /HPF (0-5/HPF); WBC Urine 5-10/HPF (0-5/HPF)
== END ==
PROVIDERS: PCP Family Medicine; Visit Provider Family Medicine
DX: R30.0 Dysuria (principal)
CPT/HCPCS: 81001; 87086

== ENCOUNTER → 2023-02-11 10:36 | Outpatient (CLI) | payer MEDICARE, SELFPAY ==
[2023-02-13 18:10] LABS: Fecal Immunochemical Test Positive (Negative)
== END ==
PROVIDERS: PCP Family Medicine; Referring Provider Family Medicine; Visit Provider Family Medicine
DX: Z12.11 Encounter for screening for malignant neoplasm of colon (principal)
CPT/HCPCS: 82274

== ENCOUNTER 2023-04-01 07:11 | Day surgery (SDC) | payer MEDICARE, SELFPAY ==
[2023-04-01] VITALS (7 sets, daily range): BP systolic 162–192; BP diastolic 79–105; PULSE 62–90; RESP 14–21; TEMP 35.7–36.9; O2SAT 90–98; BMI 27.7
[2023-04-01] MEDS: LACTATED RINGERS 1,000 ML 200 ML IV (07:58)
--- NOTE | 2023-04-01 08:40 | PM.HP.1 ---
History of Present Illness History of Present Illness Date Patient Seen: 04/01/23 Time Patient Seen: 08:40 Chief complaint: [facility] Narrative: 77-year-old woman with a positive fecal immunochemical test here for diagnostic colonoscopy. Previous colonoscopy 2010 normal. No personal or family history of colon cancer. On further history denies any recent gastrointestinal symptoms. No nausea, vomiting, abdominal pain, loss of appetite, unexplained weight loss, change in bowel habits, or blood per rectum. [facility] Medical History (Updated 04/01/23 @ 08:41 by Devaughn Katz MD) Breast cancer (~2012) Coronary artery disease (~2003) Foot pain Frequent UTI Hyperlipidemia Hypertension Surgical History History of hip replacement (~2012) History of lumpectomy (~2012) History of mitral valve replacement (~2003) S/P cataract extraction Status post coronary artery bypass graft (~2003) Social History marital status: household members: none lives independently: Yes occupational status: employed Smoking Status: Never smoker alcohol intake: former substance use type: does not use Meds Home Medications and Allergies Home Medications Medication Instructions Recorded Confirmed Type atenolol 25 mg tablet 25 mg PO QDAY ##0 07/01/17 04/01/23 History aspirin 81 mg tablet,delayed 81 mg PO DAILY 08/31/20 04/01/23 History release (Adult Low Dose Aspirin) atorvastatin 40 mg tablet See Rx Instructions .Route 10/21/22 04/01/23 Rx .COMPLEX #90 tabs losartan 100 mg tablet See Rx Instructions .Route 02/13/23 04/01/23 Rx .COMPLEX #90 tabs oxybutynin chloride 5 mg See Rx Instructions .Route 02/28/23 04/01/23 Rx tablet,extended release 24 hr .COMPLEX #90 tabs sodium,potassium,mag sulfates 17.5 See Rx Instructions PO .COMPLEX 03/03/23 Rx gram-3.13 gram-1.6 gram oral soln #354 mL (Suprep Bowel Prep Kit) Allergies Allergy/AdvReac Type Severity Reaction Status Date / Time ampicillin [AMPICILLIN] Allergy Intermediate hives Verified 04/01/23 07:38 Sulfa (Sulfonamide Allergy Intermediate Verified 04/01/23 07:38 Antibiotics) [SULFA (SULFONAMIDE ANTIBIOTICS)] Exam Vital Signs (past 8 hours): - 04/01/23 07:42 04/01/23 07:59 Temperature 96.3 F L Pulse Rate 68 62 Respiratory Rate 21 Blood Pressure 192/95 H 162/79 H Pulse Oximetry 97 Oxygen Delivery Method Room Air Oxygen Delivery Method Room Air Narrative Exam Narrative: General adult woman alert oriented no acute distress Abdomen soft nontender nondistended Assessment & Plan Assessment and plan (1) Positive FIT (fecal immunochemical test): Status: Acute Assessment & Plan narrative: 77-year-old woman with a positive fecal immunochemical test here for diagnostic colonoscopy. Technical details were discussed. Risks, benefits, alternatives explained. Risks including but not limited to myocardial infarction, aspiration, bleeding, pain, missed lesion, incomplete examination, need for further radiographic studies, colonic perforation, and need for major abdominal surgery were discussed. All questions were answered to their satisfaction, and they are in agreement with this plan.
--- NOTE | 2023-04-01 09:30 | P.OP.COLON_ITS ---
Operative Date/Time/Diagnoses Date of procedure: 04/01/23 Time of procedure: 09:30 Pre-op diagnosis: Positive fecal immunochemical test Post-op diagnosis: same Procedure & Clinicians Study performed: Incomplete colonoscopy Same procedure as scheduled: Yes Indications: 77-year-old woman with a positive fecal immunochemical test here for a natanael gnostic colonoscopy. Surgeon: Devaughn Katz Procedure Notes Procedure in detail: The history and physical was performed/updated and the patient is ASA class is 3. The procedure was discussed in detail with the patient. Potential risks complications including infection, bleeding, missed diagnosis, perforation, need for surgery, and were explained. Their questions were answered and informed consent was obtained. Patient was brought to the procedure room and placed standard monitoring eq uipment. The patient's vital signs were monitored continuously throughout the entire procedure. Prior to starting time-out was performed. The patient was placed in the left lateral recumbent position. Procedural sedation was administered by anesthesia. Examination began with a thorough inspection of the perianal area there was no evidence of fissures, fistulae, external hemorrhoids or cutaneous malignancy. The colonoscopy scope was then placed into the anal canal and advanced forward. The colon was significant for extensive diverticulosis within the descending colon and tortuosity. Despite multiple attempts at repositioning stiffening the scope and external pressure safe passage to the cecum could not be accomplished. We reach the level of the hepatic flexure but no further progress could be made. The scope was then slowly withdrawn examining the colon thoroughly in all directions. No masses or polyps were identified. Internal hemorrhoids were noted on rectal examination. The patient tolerated the procedure well. They will be discharged once criteria are met. The prep was of good/excellent quality. The withdrawl time was not applicable minutes. Specimen(s): none sent Impression: Incomplete colonoscopy Post-procedure Recommendations: High fiber diet Plan for aftercare: Barium enema Disposition: same day surgery
== END 2023-04-01 10:00 | disposition home or self-care (01) ==
PROVIDERS: PCP Family Medicine; Referring Provider Surgery; Visit Provider Surgery
PROC: 0DJD8ZZ Inspection of Lower Intestinal Tract, Via Natural or Artificial Opening Endoscopic (ICD-10-PCS; CPT 45378; principal; 2023-04-01 08:45)
DX: R19.5 Other fecal abnormalities (principal); K57.30 Diverticulosis of large intestine without perforation or abscess without bleeding; K64.8 Other hemorrhoids; I10 Essential (primary) hypertension; E78.5 Hyperlipidemia, unspecified; Z85.3 Personal history of malignant neoplasm of breast; Z95.1 Presence of aortocoronary bypass graft; Z95.2 Presence of prosthetic heart valve
CPT/HCPCS: 45378; J2704; J3010

== ENCOUNTER → 2023-04-21 10:22 | Outpatient (CLI) | payer MEDICARE, SELFPAY ==
--- NOTE | 2023-04-21 10:24 | DI.RAD.S_ITS ---
PROCEDURE: FL BARIUM ENEMA INDICATIONS: Other fecal abnormalities COMPARISON: None. 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 No suspicious abdominal calcifications. Visualized solid organ contours appear normal in size. No suspicious bony lesions. Postsurgical changes from left hip arthroplasty. Degenerative changes are seen in the spine. Aortic atherosclerotic calcifications are present. Colon: There is adequate opacification of the entire colon. Redundancy and tortuosity of the transverse colon is noted. No strictures or extrinsic mass effects are identified. No colonic fistulae or perforations. Colon caliber appears normal. Multiple diverticula are seen in the sigmoid colon, and a few diverticula are seen scattered throughout the remainder of the colon.. IMPRESSION: 1. No radiographic evidence of malignancy. 2. Colonic diverticulosis. Approved by: Jason Gomez M.D. on 04/21/2023 at 14:02
== END ==
PROVIDERS: PCP Family Medicine; Referring Provider Surgery; Visit Provider Surgery
DX: R19.5 Other fecal abnormalities (principal); K57.30 Diverticulosis of large intestine without perforation or abscess without bleeding
CPT/HCPCS: 74270

== ENCOUNTER → 2023-09-29 08:17 | Outpatient (CLI) | payer MEDICARE, SELFPAY ==
--- NOTE | 2023-09-29 08:19 | DI.MG.S_ITS ---
BILATERAL DIGITAL SCREENING MAMMOGRAM 3D/2D WITH CAD POST LUMPECTOMY: 09/29/2023 CLINICAL: Routine screening. Breast cancer. Comparison is made to exams dated: 09/23/2022 mammogram, 09/21/2021 mammogram, and 08/30/2020 mammogram - [facility]. There are scattered areas of fibroglandular density in both breasts (category b / 25%-50% glandular tissue). Current study was also evaluated with a Computer Aided Detection (CAD) system. There are benign calcifications in both breasts. There also are benign post operative findings in the right breast. No significant masses, calcifications, or other findings are seen in either breast. There has been no significant interval change. IMPRESSION: BENIGN There is no mammographic evidence of malignancy. A 1 year screening mammogram is recommended. This exam was interpreted at Station ID: [id number]. NOTE: For mammograms, a report in lay terms will be sent to the patient. Approximately 15% of breast malignancies will not be visualized mammographically. In the management of a palpable breast mass, a negative mammogram must not discourage biopsy of a clinically suspicious lesion. Electronically Signed By: Georgi aguiar/cee:09/29/2023 10:34:59 letter sent: Normal Exam ACR BI-RADS Category 2: Benign Finding(s) 3342F
== END ==
PROVIDERS: PCP Family Medicine; Referring Provider Family Medicine; Visit Provider Family Medicine
DX: Z12.31 Encounter for screening mammogram for malignant neoplasm of breast (principal)
CPT/HCPCS: 77063; 77067

== ENCOUNTER → 2023-10-09 06:29 | Outpatient (CLI) | payer MEDICARE, SELFPAY ==
[2023-10-09 08:40] LABS: Alanine Aminotransferase 23 IU/L (<35); Albumin 4.5 g/dL (3.5-5.0); Albumin Globulin Ratio 1.3 (1.0-2.8); Alkaline Phosphatase 64 U/L (38-126); Aspartate Aminotransferase 27 IU/L (14-36); BUN Creatinine Ratio 20.6 (6-22); Bilirubin Total 0.7 mg/dL (0.2-1.3); Blood Urea Nitrogen 14 mg/dL (7-17); Calcium 9.3 mg/dL (8.4-10.2); Carbon Dioxide 27 mmol/L (22-32); Chloride 99 mmol/L (98-107); Cholesterol 181 mg/dL (140-199); Estimated Glomerular Filt Rate > 60 mL/min (>60); Globulin 3.4 g/dL (1.7-4.1); Glucose 94 mg/dL (80-110); HDL Cholesterol 47 mg/dL (40-60); HEMOLYSIS < 15 (0-50); LDL Cholesterol Calculated 85 mg/dL (<100); Potassium 4.5 mmol/L (3.4-5.1); Sodium 135 mmol/L (137-145); Total Protein 7.9 g/dL (6.3-8.2); Triglycerides 247 mg/dL (35-150)
== END ==
PROVIDERS: PCP Family Medicine; Referring Provider Family Medicine; Visit Provider Family Medicine
DX: E78.5 Hyperlipidemia, unspecified (principal); I25.10 Atherosclerotic heart disease of native coronary artery without angina pectoris; I10 Essential (primary) hypertension
CPT/HCPCS: 36415; 80053; 80061

== ENCOUNTER → 2024-08-22 10:53 | Outpatient (CLI) | payer MEDICARE, SELFPAY | PROVIDERS: PCP Family Medicine; Visit Provider Physician Assistant Surgical | DX: T14.8XXA Other injury of unspecified body region, initial encounter (principal) | CPT/HCPCS: 87070; 87205 ==

== ENCOUNTER → 2024-08-26 13:18 | Outpatient (CLI) | payer MEDICARE, SELFPAY | PROVIDERS: PCP Family Medicine; Referring Provider Physician Assistant Surgical; Visit Provider Surgery | DX: L97.522 Non-pressure chronic ulcer of other part of left foot with fat layer exposed (principal); G62.9 Polyneuropathy, unspecified; L84 Corns and callosities; I25.10 Atherosclerotic heart disease of native coronary artery without angina pectoris | CPT/HCPCS: 11042; 87070; 87075; 87205; 99203; 99214 ==

== ENCOUNTER → 2024-08-27 08:31 | Outpatient (CLI) | payer MEDICARE, SELFPAY ==
--- NOTE | 2024-08-27 08:32 | DI.RAD.S_ITS ---
PROCEDURE: XR FOOT LT MIN 3V INDICATIONS: eval for osteo TECHNIQUE: 3 views of the foot were acquired. COMPARISON: [facility], CR, XR FOOT LT MIN 3V, 01/04/2022, 9:51. FINDINGS: Bones: Pes planus and hammertoe deformities 1st through 5th digits appreciated. 1.4 cm well-circumscribed radiolucent lesion in the navicular is new Joints: Mild degenerative change present the 1st MTP with equivocal juxta-articular erosions in the medial periarticular bases with overlying soft tissue swelling. Mild degenerative change seen all interphalangeal joints. Mild degenerative change in the in navicular cuneiform joints appreciated Soft tissues: Moderate forefoot midfoot soft tissue swelling noted. Calcifications seen in the Achilles tendon insertion. IMPRESSION: First MTP degeneration with juxta-articular cysts. This likely represents atypical degeneration. Please correlate with serum uric acid to ensure the absence of gout. 1.4 cm radiolucent lesion in the navicular is new. Osteomyelitis is possible although unlikely. Consider MRI. Degeneration Dictated by: James Albright M.D. on 08/30/2024 at 8:06 Approved by: James Albright M.D. on 08/30/2024 at 8:15
== END ==
PROVIDERS: PCP Family Medicine; Referring Provider Surgery; Visit Provider Surgery
DX: M19.072 Primary osteoarthritis, left ankle and foot (principal); M21.42 Flat foot [pes planus] (acquired), left foot; M20.42 Other hammer toe(s) (acquired), left foot; M79.89 Other specified soft tissue disorders; M89.9 Disorder of bone, unspecified; M65.872 Other synovitis and tenosynovitis, left ankle and foot; L89.93 Pressure ulcer of unspecified site, stage 3
CPT/HCPCS: 73630

== ENCOUNTER → 2024-08-30 09:49 | Outpatient (CLI) | payer MEDICARE, SELFPAY | PROVIDERS: PCP Family Medicine; Referring Provider Physician Assistant Surgical; Visit Provider Surgery | DX: L97.522 Non-pressure chronic ulcer of other part of left foot with fat layer exposed (principal); G62.9 Polyneuropathy, unspecified; L84 Corns and callosities | CPT/HCPCS: 99212 ==

== ENCOUNTER → 2024-09-02 08:50 | Outpatient (CLI) | payer MEDICARE, SELFPAY | PROVIDERS: PCP Family Medicine; Referring Provider Physician Assistant Surgical; Visit Provider Surgery | DX: L97.521 Non-pressure chronic ulcer of other part of left foot limited to breakdown of skin (principal); L84 Corns and callosities; G62.9 Polyneuropathy, unspecified | CPT/HCPCS: 99212; 99213 ==

== ENCOUNTER → 2024-09-09 09:27 | Outpatient (CLI) | payer MEDICARE, SELFPAY | LOC: WC 09:31 | PROVIDERS: PCP Family Medicine; Referring Provider Physician Assistant Surgical; Visit Provider Surgery | DX: G62.9 Polyneuropathy, unspecified (principal); L84 Corns and callosities | CPT/HCPCS: 99213 ==

== ENCOUNTER → 2024-10-05 09:07 | Outpatient (CLI) | payer MEDICARE, SELFPAY ==
--- NOTE | 2024-10-05 09:09 | DI.MG.S_ITS ---
BILATERAL DIGITAL SCREENING MAMMOGRAM 3D/2D WITH CAD POST LUMPECTOMY: 10/05/2024 CLINICAL: Routine screening. Personal history of right breast cancer. Comparison is made to exams dated: 09/29/2023 mammogram, 09/23/2022 mammogram, 09/21/2021 mammogram, and 08/30/2020 mammogram - [facility]. There are scattered areas of fibroglandular density (category b / 25%-50% glandular tissue). Current study was also evaluated with a Computer Aided Detection (CAD) system. There is a focal asymmetry in the right breast central to the nipple anterior depth. This is more prominent. No other significant masses, calcifications, or other findings are seen in either breast. Post operative findings in the right breast. IMPRESSION: INCOMPLETE: NEED ADDITIONAL IMAGING EVALUATION The focal asymmetry in the right breast resembles a cyst and is indeterminate. Additional views with possible ultrasound are recommended. This exam was interpreted at Station ID: [id number]. NOTE: For mammograms, a report in lay terms will be sent to the patient. Approximately 15% of breast malignancies will not be visualized mammographically. In the management of a palpable breast mass, a negative mammogram must not discourage biopsy of a clinically suspicious lesion. Electronically Signed By: Georgi Dowd M.D. slc/:10/05/2024 12:02:30 letter sent: Additional Imaging Needed ACR BI-RADS Category 0: Incomplete: Need Additional Imaging Evaluation
== END ==
PROVIDERS: PCP Family Medicine; Referring Provider Family Medicine; Visit Provider Family Medicine
DX: Z12.31 Encounter for screening mammogram for malignant neoplasm of breast (principal); Z85.3 Personal history of malignant neoplasm of breast
CPT/HCPCS: 77063; 77067

== ENCOUNTER → 2024-10-26 08:58 | Outpatient (CLI) | payer MEDICARE, SELFPAY ==
--- NOTE | 2024-10-26 08:59 | DI.MG.S_ITS ---
UNILATERAL RIGHT DIGITAL DIAGNOSTIC MAMMOGRAM 3D/2D WITH ADDITIONAL VIEWS POST LUMPECTOMY: 10/26/2024 CLINICAL: Additional evaluation requested from prior study. Comparison is made to exams dated: 10/05/2024 mammogram, 09/29/2023 mammogram, and 09/23/2022 mammogram - [facility]. There are scattered areas of fibroglandular density (category b / 25%-50% glandular tissue). There is a 0.9 cm oval mass with a circumscribed margin in the right breast central to the nipple anterior depth. No other significant masses or calcifications are seen in the breast. IMPRESSION: INCOMPLETE: NEED ADDITIONAL IMAGING EVALUATION The 0.9 cm oval mass in the right breast is indeterminate. An ultrasound is recommended for further evaluation and is scheduled to immediately follow this examination. This exam was interpreted at Station ID: [id number]. NOTE: For mammograms, a report in lay terms will be sent to the patient. Approximately 15% of breast malignancies will not be visualized mammographically. In the management of a palpable breast mass, a negative mammogram must not discourage biopsy of a clinically suspicious lesion. Electronically Signed By: Lauryn Seo M.D., Ph.D. eb/:10/26/2024 11:36:31 letter sent: Additional Imaging Needed ACR BI-RADS Category 0: Incomplete: Need Additional Imaging Evaluation
--- NOTE | 2024-10-26 08:59 | DI.US.S_ITS ---
PROCEDURE: US BREAST RT LIMITED COMPARISON: None. INDICATIONS: focal asymmetry in the right breast FINDINGS: IMPRESSION: Dictated by: Lauryn Seo M.D.,Ph.D. on 10/26/2024 at 11:32 Approved by: Lauryn Seo M.D.,Ph.D. on 10/26/2024 at 11:38
--- NOTE | 2024-10-26 10:18 | DI.US.S_ITS ---
Patient Name: FAITH CHAPPELL date: 1945 Sex: F Attending Physician: Rabia Indications: Date: 10/26/2024 11:39 At the request of: JOSE PEDROZA Procedure: US breast RT limited LIMITED ULTRASOUND OF RIGHT BREAST: 10/26/2024 CLINICAL: Patient returns today to evaluate a focal asymmetry in the right breast. Comparison is made to exams dated: 10/26/2024 mammogram and 10/05/2024 mammogram - [facility]. Color flow and real-time ultrasound of the right breast 3 o'clock, and retroareolar regions were performed. Vicente scale images of the real-time examination were reviewed. There is a 0.9 cm x 0.8 cm x 0.9 cm oval mass with an indistinct margin in the right breast at 3 o'clock in the retroareolar region. This oval mass is hypoechoic. This correlates with mammography findings. No abnormal lymph nodes are seen in the axilla. IMPRESSION: SUSPICIOUS Right breast 0.9 cm oval mass at 3 o'clock in the retroareolar region. Finding is suspicious. An ultrasound guided biopsy is recommended. Findings and recommendations were discussed with the patient by Dr. Seo over the phone during today's examination. This exam was interpreted at Station ID: [id number]. Electronically Signed By: Lauryn Seo M.D., Ph.D. eb/:10/26/2024 11:39:10 Continued Report - Page 2 of 2 Patient Name: FAITH CHAPPELL date: 1945 Sex: F Attending Physician: Rabia Indications: Date: 10/26/2024 11:39 At the request of: JOSE PEDROZA Procedure: US breast RT limited letter sent: Biopsy Required ACR BI-RADS Category 4: Suspicious
== END ==
PROVIDERS: PCP Family Medicine; Referring Provider Family Medicine; Visit Provider Family Medicine
DX: R92.8 Other abnormal and inconclusive findings on diagnostic imaging of breast (principal); N63.15 Unspecified lump in the right breast, overlapping quadrants; N60.01 Solitary cyst of right breast
CPT/HCPCS: 76642; 77065; G0279

== ENCOUNTER → 2024-12-24 07:02 | Outpatient (CLI) | payer MEDICARE, SELFPAY ==
[2024-12-24 08:04] LABS: Add Manual Diff / Slide Review NO; Basophils Absolute Auto 0 /uL (0-100); Basophils Percent Auto 0.7 % (0-2); Eosinophils Absolute Auto 200 /uL (0-450); Eosinophils Percent Auto 3.4 % (2-4); Hematocrit 37.3 % (36-46); Hemoglobin 12.9 g/dL (12.0-16.0); Lymphocytes Absolute Auto 1600 /uL (1100-4500); Lymphocytes Percent Auto 31.4 % (25-40); Mean Corpuscular HGB Conc 34.6 % (30-36); Mean Corpuscular Volume 98.2 fL (80-100); Monocytes Absolute Auto 600 /uL (0-900); Monocytes Percent Auto 12.2 % (3-14); Neutrophils Absolute Auto 2700 /uL (1500-7000); Neutrophils Percent Auto 52.3 % (50-75); Platelet Count 201 X10^3/uL (150-400); Red Cell Distribution Width 12.6 % (11.6-14.8); White Blood Cell Count 5.2 X10^3/uL (4.5-11.0)
[2024-12-24 08:11] LABS: Hemoglobin A1C% w Est Avg Glu 5.2 % (4.0-6.0)
[2024-12-24 08:40] LABS: Alanine Aminotransferase 37 IU/L (<35); Albumin 4.4 g/dL (3.5-5.0); Albumin Globulin Ratio 1.6 (1.0-2.8); Alkaline Phosphatase 92 U/L (38-126); Aspartate Aminotransferase 45 IU/L (14-36); BUN Creatinine Ratio 18.9 (6-22); Bilirubin Total 0.7 mg/dL (0.2-1.3); Blood Urea Nitrogen 14 mg/dL (7-17); Calcium 8.9 mg/dL (8.4-10.2); Carbon Dioxide 27 mmol/L (22-32); Chloride 100 mmol/L (98-107); Cholesterol 192 mg/dL (140-199); Estimated Glomerular Filt Rate > 60 mL/min (>60); Globulin 2.7 g/dL (1.7-4.1); Glucose 96 mg/dL (80-110); HDL Cholesterol 61 mg/dL (40-60); HEMOLYSIS < 15 (0-50); LDL Cholesterol Calculated 95 mg/dL (<100); Potassium 4.4 mmol/L (3.4-5.1); Sodium 133 mmol/L (137-145); Total Protein 7.1 g/dL (6.3-8.2); Triglycerides 180 mg/dL (35-150)
[2024-12-24 09:28] LABS: Hep C Virus Ab w/Reflex Quant NEGATIVE s/c (NEGATIVE)
== END ==
PROVIDERS: PCP Family Medicine; Referring Provider Family Medicine; Visit Provider Family Medicine
DX: I10 Essential (primary) hypertension (principal); I25.10 Atherosclerotic heart disease of native coronary artery without angina pectoris; E78.5 Hyperlipidemia, unspecified; G62.9 Polyneuropathy, unspecified; Z11.59 Encounter for screening for other viral diseases
CPT/HCPCS: 36415; 80053; 80061; 83036; 85025; 86803

== ENCOUNTER 2025-03-08 06:46 | Emergency (ER) | payer MEDICARE, SELFPAY ==
[2025-03-08] VITALS (19 sets, daily range): BP systolic 162–208; BP diastolic 68–98; PULSE 57–85; RESP 12–20; TEMP 36.8; O2SAT 93–99; BMI 29.0
--- NOTE | 2025-03-08 06:53 | ED.GENADULT ---
HPI - General Adult General Chief complaint: Back Pain/Injury Stated complaint: Rt side mid back pain, causes SOB Time Seen by Provider: 03/08/25 06:50 History of Present Illness HPI narrative: 79-year-old female with nontraumatic right flank area discomfort since 6:00 p.m. yesterday, no history of urinary stones recalled, no frequency of urination or painful urination, no injury trauma new activities, no recent cough or shortness of breath, no nausea or vomiting, no diarrhea, no black or red stools. She took a leave ikae-vng-wbmqntd medication that did not significantly decrease the pain, got little sleep overnight due to the pain. Here for persisting right flank pain. No previous gallbladder problems, no gallbladder surgeries. No history of colitis or diverticulitis recalled. Related Data Home Medications Medication Instructions Recorded Confirmed aspirin 81 mg tablet,delayed 81 mg PO DAILY 08/31/20 12/23/24 release (Adult Low Dose Aspirin) Previous Rx's Medication Instructions Recorded atenolol 25 mg tablet 25 mg PO DAILY for blood pressure 12/23/24 #100 tabs atorvastatin 40 mg tablet See Rx Instructions .Route 12/23/24 .COMPLEX cholesterol #100 tabs losartan 100 mg tablet 100 mg PO DAILY blood pressure 12/23/24 #100 tabs ciprofloxacin HCl 500 mg tablet 500 mg PO BID 10 days #20 tabs 03/08/25 Allergies Allergy/AdvReac Type Severity Reaction Status Date / Time ampicillin [AMPICILLIN] Allergy Intermediate hives Verified 12/23/24 08:11 Sulfa (Sulfonamide Allergy Intermediate Verified 12/23/24 08:11 Antibiotics) [SULFA (SULFONAMIDE ANTIBIOTICS)] Patient History Medical History (Updated 03/08/25 @ 08:33 by Jairo Allison MD) Peripheral autonomic neuropathy due to underlying disease Foot pain Frequent UTI Hypertension Hyperlipidemia Coronary artery disease (~2003) Breast cancer (~2012) Surgical History S/P cataract extraction History of mitral valve replacement (~2003) History of lumpectomy (~2012) History of hip replacement (~2012) Status post coronary artery bypass graft (~2003) Social History marital status: household members: none lives independently: Yes occupational status: employed Smoking Status: Never smoker alcohol intake: former substance use type: does not use Exam Narrative Exam Narrative: GENERAL: Well-developed patient, in mild distress. HEAD: Atraumatic. Normocephalic. EYES: Pupils equal round and reactive. Extraocular motions intact. No scleral icterus. No injection or drainage. ENT: Nose without bleeding, purulent drainage. Throat without erythema, tonsillar hypertrophy or exudate. Airway patent. NECK: Trachea midline. Non tender CARDIOVASCULAR: Regular rate and rhythm without murmurs, gallops, or rubs. RESPIRATORY: Clear to auscultation. Breath sounds equal bilaterally. No wheezes, rales, or rhonchi. GASTROINTESTINAL: Abdomen soft, non-tender, nondistended. EXTREMITIES: No edema or joint tenderness. BACK: Nontender without deformity or crepitance. No flank tenderness. NEURO: AOx3. Motor functions grossly nonfocal SKIN: No rash or erythema of visible areas Initial Vital Signs Initial Vital Signs: Vital Signs Temperature 98.3 F 03/08/25 06:55 Pulse Rate 68 03/08/25 06:55 Respiratory Rate 18 03/08/25 06:55 Blood Pressure 195/82 H 03/08/25 06:55 Pulse Oximetry 98 03/08/25 06:55 Oxygen Delivery Method Room Air 03/08/25 06:55 Course Orders Ordered: Discontinued Medications Ciprofloxacin (Ciprofloxacin 250 Mg Tablet) 500 mg PO NOW ONE Stop: 03/08/25 07:56 Last Admin: 03/08/25 08:22 Dose: 500 mg Documented By: SEVERIANO Hydromorphone HCl (Hydromorphone 0.5 Mg Inj) 0.5 mg IV NOW ONE Stop: 03/08/25 07:32 Last Admin: 03/08/25 07:51 Dose: 0.5 mg Documented By: SEVERIANO Losartan Potassium (Losartan 50 Mg Tablet) 100 mg PO NOW ONE Stop: 03/08/25 10:41 Last Admin: 03/08/25 10:48 Dose: 100 mg Documented By: Ondansetron HCl (Ondansetron 4 Mg/2 Ml Inj) 4 mg IV NOW ONE Stop: 03/08/25 07:32 Last Admin: 03/08/25 07:51 Dose: 4 mg Documented By: SEVERIANO Vital Signs Vital signs: Vital Signs - 8 hr 03/08/25 06:55 03/08/25 07:54 03/08/25 07:55 Temperature 98.3 F Pulse Rate 68 Respiratory Rate 18 Blood Pressure 195/82 H 195/84 H Pulse Oximetry 98 98 Oxygen Delivery Method Room Air 03/08/25 07:55 03/08/25 08:00 03/08/25 08:01 Temperature Pulse Rate 65 65 Respiratory Rate Blood Pressure 183/79 H Pulse Oximetry 99 94 Oxygen Delivery Method 03/08/25 08:01 03/08/25 08:30 03/08/25 08:31 Temperature Pulse Rate 65 60 Respiratory Rate 15 Blood Pressure 170/77 H Pulse Oximetry 97 94 Oxygen Delivery Method Room Air 03/08/25 08:31 03/08/25 09:00 03/08/25 09:00 Temperature Pulse Rate 61 60 Respiratory Rate 13 13 Blood Pressure 194/81 H Pulse Oximetry 96 93 Oxygen Delivery Method Room Air Medical Decision Making Lab Data Lab results reviewed: Yes I reviewed the patient's lab results. Lab results narrative: White blood cell count 7100, hemoglobin 13.4, platelets adequate. Basic metabolic panel shows sodium low 130 range noted, otherwise unremarkable. Liver functions showed mild transaminitis. Urinalysis shows bacteriuria with inflammatory cells, urine culture requested. 03/08/25 07:30 03/08/25 07:30 Labs: Lab Results 03/08/25 03/08/25 Range/Units 07:20 07:30 WBC 7.1 (4.5-11.0) X10^3/uL RBC 3.98 L (4.0-5.2) X10^6/uL Hgb 13.4 (12.0-16.0) g/dL Hct 39.5 (36-46) % MCV 99.1 (80-100) fL MCH 33.7 (26-34) PG MCHC 34.0 (30-36) % RDW 12.2 (11.6-14.8) % Plt Count 201 (150-400) X10^3/uL Neut % (Auto) 75.4 H (50-75) % Lymph % (Auto) 15.1 L (25-40) % [place] % (Auto) 8.3 (3-14) % Eos % (Auto) 0.7 L (2-4) % Baso % (Auto) 0.5 (0-2) % Neut # (Auto) 5400 (0710-5906) /uL Lymph # (Auto) 1100 (0121-4059) /uL [place] # (Auto) 600 (0-900) /uL Eos # (Auto) 0 (0-450) /uL Baso # (Auto) 0 (0-100) /uL Sodium 130 L (137-145) mmol/L Potassium 4.3 (3.4-5.1) mmol/L Chloride 98 (98-107) mmol/L Carbon Dioxide 22 (22-32) mmol/L BUN 19 H (7-17) mg/dL Creatinine 0.67 (0.52-1.04) mg/dL Estimated GFR > 60 (>60) mL/min BUN/Creatinine Ratio 28.4 H (6-22) Glucose 124 H (80-110) mg/dL Calcium 8.9 (8.4-10.2) mg/dL Total Bilirubin 0.9 (0.2-1.3) mg/dL AST 47 H (14-36) IU/L ALT 38 H (<35) IU/L Alkaline Phosphatase 96 (38-126) U/L Total Protein 7.3 (6.3-8.2) g/dL Albumin 4.2 (3.5-5.0) g/dL Globulin 3.1 (1.7-4.1) g/dL Albumin/Globulin Ratio 1.4 (1.0-2.8) Lipase 113 (23-300) U/L Urine RBC 5-10/hpf H (0-5/HPF) Urine WBC 5-10/hpf H (0-5/HPF) Ur Squamous Epith Cells None seen (0-5/HPF) Urine Bacteria Moderate (10-30) H (None) Ur Culture Indicated? Specimen cultured Vol Urine Centrifuged 10ml (spun) Urine Dip Bedside Urine Glucose Negative Bedside Urine Bilirubin - Negative Bedside Urine Ketone +/- 5 Urine Specific [place] 1.020 Bedside Urine Occult Blood +++ Bedside Urine pH 6 Bedside Urine Protein + 30 Bedside Urine Urobilinogen +/- 1mg Bedside Urine Nitrite + Positive Bedside Urine Leukocytes ++ 125 Esterase Point of care testing: Urine Dip Bedside Urine Glucose Negative Bedside Urine Bilirubin - Negative Bedside Urine Ketone +/- 5 Urine Specific [place] 1.020 Bedside Urine Occult Blood +++ Bedside Urine pH 6 Bedside Urine Protein + 30 Bedside Urine Urobilinogen +/- 1mg Bedside Urine Nitrite + Positive Bedside Urine Leukocytes ++ [address] scan - abdomen/pelvis: Radiologist's Impression: [address] [address] [address] Scan Report Signed Patient: Krystal Hudson MR#: [id number] : 1945 Acct:[id number] Age/Sex: 79 / F Date of Service: 03/08/25 Loc: ED Accession Number: [id number] Procedure: CT abdomen pelvis wo con Ordering Provider: Jairo Allison MD PROCEDURE: CT ABDOMEN PELVIS WO CON INDICATIONS: Right flank pain TECHNIQUE: Axial sections were acquired from the lung bases to the pubic symphysis. Coronal and sagittal reformats were performed. For radiation dose reduction, the following was used: automated exposure control, adjustment of mA and/or kV according to patient size. COMPARISON: None. FINDINGS: Image quality: Diagnostic Lower chest: Basal atelectasis/scarring. Partially seen coronary calcifications and mitral annuloplasty. Small hiatal hernia. Liver: No contour deforming mass. Solid organs are not well assessed without IV contrast Gallbladder and biliary system: Unremarkable, nondilated Pancreas: Small calcifications likely from prior inflammation. No ductal dilation Spleen: Small granuloma at the posterior aspect. No splenomegaly Adrenals: Probable small left adrenal myelolipoma. No discrete nodule otherwise Kidneys: No calcified stone. No hydronephrosis. No contour deforming solid mass. Vessels and lymph nodes: No abdominal aortic aneurysm. Atherosclerotic calcifications are seen. There are no pathologic lymph nodes by size criteria. Bowel and peritoneum: No evidence of small bowel obstruction. No drainable ascites or abscess. Colonic diverticula. No significant acute inflammation. Overall zkod-ed-sfchnlrs degree of fecal loading in the colon. Nondilated appendix Body wall: Small fat containing inguinal hernias. Pelvis: Bladder is under distended. Small amount of gas is seen in the bladder. Correlate with any recent instrumentation. Reproductive organs are unremarkable on limited CT evaluation. Pelvis obscured by metallic artifact Bones: Left hip arthroplasty. There are degenerative osseous changes. There are small sclerotic bone lesions of uncertain etiology, for example at L5 measuring 1.1 cm. IMPRESSION: No calcified obstructing stone. No hydronephrosis. Woza-sj-pcxllysg fecal loading. No bowel obstruction. Numerous small sclerotic bone lesions of uncertain etiology. Consider bone scan or PET-CT and correlation with any previous malignancy history. Other findings above. Dictated by: Calixto Hernández M.D. on 03/08/2025 at 7:58 Approved by: Calixto Hernández M.D. on 03/08/2025 at 8:04 ECG Data Attestation: I personally reviewed and interpreted this ECG as follows: Interpretation: Normal sinus rhythm with rate of 64, no obvious ST segment elevation or depression changes. TX 150, QRS 80, QTC 431. MDM Narrative Medical decision making narrative: 79-year-old female with nontraumatic right flank pain, last night, afebrile, sirs screen negative. No tenderness on examination, no truncal skin/rash changes. DDx consider UTI/pyelonephritis, ureteral stone, colitis, diverticulitis, duodenal ulcer, pancreatitis, cholecystitis, choledocholithiasis, constipation, musculoskeletal, lower lobe pneumonia, other. Urinalysis suspicious for infection. Urine culture requested. History of beta-lactam allergy causing hives. Oral dose of ciprofloxacin given. CT abdomen and pelvis study ordered. CT abdomen and pelvis shows no acute renal changes, no ureteral stone, does show moderate fecal colonic burden without obstructive changes, bony sclerosis lesions noted of unclear etiology. See radiology report. Printed report copy given to patient with review of findings. Further antibiotic course, prescription for further ciprofloxacin to her pharmacy. Take antibiotics as prescribed. Recheck with your regular doctor next 2 or 3 days. Elevated blood pressure, heart rate 60, has not yet taken her morning losartan, we will hold her morning metoprolol for now. Losartan 100 mg dose. Observe for some improvement in her blood pressure. Discharge Plan Departure Patient Disposition: Home Clinical Impression: Urinary tract infection, Hyponatremia, Bone lesion, Constipation Activity Restrictions/Additional Instructions: Nontraumatic right-sided flank area back pain. No skin changes or rash on examination. No history of kidney stones or bowel problems recalled. Urinalysis suspicious for infection, IV antibiotics initiated, oral antibiotics sent to your pharmacy. CT scan abdomen and pelvis showed no stones in the kidneys or either ureter, no acute kidney changes noted. There was a fair amount of stool in the bowel without obstruction, suspicious for constipation changes. There were also some sclerotic bone lesions noted, of unclear significance, that could have further workup as an outpatient, unclear related to your current symptoms. Trial of further antibiotics for urinary tract infection for now. Recheck symptoms with the regular doctor in the next couple of days. Take antibiotics as prescribed. Consider taking MiraLax or xirn-mbg-srsezzv laxative for constipation like changes on your CT scan, which may or may not be related to your current discomfort. Drink plenty of fluids. Return to this/nearest emergency department for any change worsening symptoms or any concerns prior. Elevated blood pressure, you had not yet taken your losartan medicine, this was given, blood pressure was improved. Continue taking your chronic medications as prescribed. You also had low sodium (hyponatremia) on your blood screening, of unclear cause, further workup as an outpatient for now. Prescriptions: New ciprofloxacin HCl 500 mg tablet 500 mg PO BID 10 Days Qty: 20 0RF No Action aspirin [Adult Low Dose Aspirin] 81 mg tablet,delayed release (DR/EC) 81 mg PO DAILY atenolol 25 mg tablet 25 mg PO DAILY Qty: 100 3RF atorvastatin 40 mg tablet See Rx Instructions .ROUTE .COMPLEX Qty: 100 3RF Dose Instruction: TAKE 1 TABLET BY MOUTH AT BEDTIME Rx Instructions: TAKE 1 TABLET BY MOUTH AT BEDTIME losartan 100 mg tablet 100 mg PO DAILY Qty: 100 3RF Referrals: Carlo Camarillo DO [Primary Care Provider] - Stand Alone Forms: Patient Portal/API/Survey
--- NOTE | 2025-03-08 07:04 | EKG_ITS ---
[facility] [address] [place] [address] Test Date: 2025-03-08 Pat Name: Krystal Hudson Department: 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
--- NOTE | 2025-03-08 07:30 | DI.CT.S_ITS ---
PROCEDURE: CT ABDOMEN PELVIS WO CON INDICATIONS: Right flank pain TECHNIQUE: Axial sections were acquired from the lung bases to the pubic symphysis. Coronal and sagittal reformats were performed. For radiation dose reduction, the following was used: automated exposure control, adjustment of mA and/or kV according to patient size. COMPARISON: None. FINDINGS: Image quality: Diagnostic Lower chest: Basal atelectasis/scarring. Partially seen coronary calcifications and mitral annuloplasty. Small hiatal hernia. Liver: No contour deforming mass. Solid organs are not well assessed without IV contrast Gallbladder and biliary system: Unremarkable, nondilated Pancreas: Small calcifications likely from prior inflammation. No ductal dilation Spleen: Small granuloma at the posterior aspect. No splenomegaly Adrenals: Probable small left adrenal myelolipoma. No discrete nodule otherwise Kidneys: No calcified stone. No hydronephrosis. No contour deforming solid mass. Vessels and lymph nodes: No abdominal aortic aneurysm. Atherosclerotic calcifications are seen. There are no pathologic lymph nodes by size criteria. Bowel and peritoneum: No evidence of small bowel obstruction. No drainable ascites or abscess. Colonic diverticula. No significant acute inflammation. Overall btqx-sa-fudlbdgw degree of fecal loading in the colon. Nondilated appendix Body wall: Small fat containing inguinal hernias. Pelvis: Bladder is under distended. Small amount of gas is seen in the bladder. Correlate with any recent instrumentation. Reproductive organs are unremarkable on limited CT evaluation. Pelvis obscured by metallic artifact Bones: Left hip arthroplasty. There are degenerative osseous changes. There are small sclerotic bone lesions of uncertain etiology, for example at L5 measuring 1.1 cm. IMPRESSION: No calcified obstructing stone. No hydronephrosis. Nnfi-rf-pgudmyvf fecal loading. No bowel obstruction. Numerous small sclerotic bone lesions of uncertain etiology. Consider bone scan or PET-CT and correlation with any previous malignancy history. Other findings above. Dictated by: Calixto Hernández M.D. on 03/08/2025 at 7:58 Approved by: Calixto Hernández M.D. on 03/08/2025 at 8:04
[2025-03-08 07:40] LABS: Add Manual Diff / Slide Review NO; Basophils Absolute Auto 0 /uL (0-100); Basophils Percent Auto 0.5 % (0-2); Eosinophils Absolute Auto 0 /uL (0-450); Eosinophils Percent Auto 0.7 % (2-4); Hematocrit 39.5 % (36-46); Hemoglobin 13.4 g/dL (12.0-16.0); Lymphocytes Absolute Auto 1100 /uL (1100-4500); Lymphocytes Percent Auto 15.1 % (25-40); Mean Corpuscular Hemoglobin 33.7 PG (26-34); Mean Corpuscular Volume 99.1 fL (80-100); Monocytes Absolute Auto 600 /uL (0-900); Monocytes Percent Auto 8.3 % (3-14); Neutrophils Absolute Auto 5400 /uL (1500-7000); Neutrophils Percent Auto 75.4 % (50-75); Platelet Count 201 X10^3/uL (150-400); Red Blood Cell Count 3.98 X10^6/uL (4.0-5.2); Red Cell Distribution Width 12.2 % (11.6-14.8); White Blood Cell Count 7.1 X10^3/uL (4.5-11.0)
[2025-03-08 07:44] LABS: Urine Volume 10mL (spun)
[2025-03-08 07:45] LABS: Bacteria Urine Moderate (10-30); Culture Indicated Urine Specimen Cultured; RBC Urine 5-10/HPF (0-5/HPF); Squamous Epithelial Cell Urine None Seen (0-5/HPF); WBC Urine 5-10/HPF (0-5/HPF)
[2025-03-08] MEDS: HYDROMORPHONE 0.5 MG INJ IV (07:51)
[2025-03-08] MEDS: ONDANSETRON 4 MG/2 ML INJ IV (07:51)
[2025-03-08 07:54] LABS: Alanine Aminotransferase 38 IU/L (<35); Albumin 4.2 g/dL (3.5-5.0); Albumin Globulin Ratio 1.4 (1.0-2.8); Alkaline Phosphatase 96 U/L (38-126); Aspartate Aminotransferase 47 IU/L (14-36); BUN Creatinine Ratio 28.4 (6-22); Bilirubin Total 0.9 mg/dL (0.2-1.3); Blood Urea Nitrogen 19 mg/dL (7-17); Calcium 8.9 mg/dL (8.4-10.2); Carbon Dioxide 22 mmol/L (22-32); Chloride 98 mmol/L (98-107); Estimated Glomerular Filt Rate > 60 mL/min (>60); Globulin 3.1 g/dL (1.7-4.1); Glucose 124 mg/dL (80-110); HEMOLYSIS < 15 (0-50); Lipase 113 U/L (23-300); Potassium 4.3 mmol/L (3.4-5.1); Sodium 130 mmol/L (137-145); Total Protein 7.3 g/dL (6.3-8.2)
--- NOTE | 2025-03-08 07:58 | PC.NURSE ---
Pt states she did not take her bp medicine this morning and friend can drive her home.
--- NOTE | 2025-03-08 08:10 | PC.NURSE ---
MD dawkins stated troponin not needed
[2025-03-08] MEDS: CIPROFLOXACIN 250 MG TABLET 500 MG PO (08:22)
--- NOTE | 2025-03-08 10:35 | PC.NURSE ---
Dr Allison notified of BP 208/98.
[2025-03-08] MEDS: LOSARTAN 50 MG TABLET 100 MG PO (10:48)
== END 2025-03-08 12:03 | disposition home or self-care (01) ==
PROVIDERS: Emergency Provider Emergency Medicine; PCP Family Medicine
DX: N39.0 Urinary tract infection, site not specified (principal); E87.1 Hypo-osmolality and hyponatremia; K59.00 Constipation, unspecified; M89.9 Disorder of bone, unspecified
CPT/HCPCS: 74176; 80053; 81003; 81015; 83690; 85025; 87077; 87086; 87186; 93005; 96374; 96375; 99284; J1171; J2405

== ENCOUNTER → 2025-08-17 09:39 | Outpatient (CLI) | payer MEDICARE, SELFPAY | PROVIDERS: PCP Family Medicine; Visit Provider Family Medicine | DX: R39.9 Unspecified symptoms and signs involving the genitourinary system (principal) | CPT/HCPCS: 81002; 87077; 87086; 87186 ==

== ENCOUNTER 2025-09-10 06:28 | Emergency (ER) | payer MEDICARE, SELFPAY ==
--- NOTE | 2025-09-10 06:41 | ED.FEMALEGU ---
HPI - Female Genitourinary General Chief complaint: Urogenital-Female Stated complaint: Poss UTI Time Seen by Provider: 09/10/25 06:40 History of Present Illness HPI Narrative: 72-year-old female history of CAD status post bypass in 2003 presents with very frequency and decreased urinary stream for the past 2 days. She denies fever, chills, back pain, nausea, vomiting, abdominal pain, constipation, rectal bleeding, hematuria, and vaginal discharge. Other than what is stated 14 point review of system is negative Related Data Home Medications ?Medication ?Instructions ?Recorded ?Confirmed aspirin 81 mg tablet,delayed 81 mg PO DAILY 08/31/20 08/17/25 release (Adult Low Dose Aspirin) atorvastatin 40 mg tablet 40 mg PO ONCE PM cholesterol 08/17/25 08/17/25 Previous Rx's ?Medication ?Instructions ?Recorded atenolol 25 mg tablet 25 mg PO DAILY for blood pressure 12/23/24 #100 tabs losartan 100 mg tablet 100 mg PO DAILY blood pressure 12/23/24 #100 tabs ciprofloxacin HCl 500 mg tablet 500 mg PO BID #10 tabs 09/10/25 (Cipro) Allergies Allergy/AdvReac Type Severity Reaction Status Date / Time ampicillin (AMPICILLIN) Allergy Intermediate hives Verified 08/17/25 09:42 Sulfa (Sulfonamide Allergy Intermediate Verified 08/17/25 09:42 Antibiotics) (SULFA (SULFONAMIDE ANTIBIOTICS)) Review of Systems Review of Systems ROS Unobtainable: All systems reviewed & are unremarkable except as noted in HPI and below Patient History Medical History (Updated 09/10/25 @ 06:49 by James Basurto, DO) Peripheral vascular disease IFG (impaired fasting glucose) Breast mass POLST (Physician Orders for Life-Sustaining Treatment) Encounter for subsequent annual wellness visit (AWV) in Medicare patient Peripheral autonomic neuropathy due to underlying disease Foot pain Frequent UTI Hypertension Hyperlipidemia Coronary artery disease (~2003) Breast cancer (~2012) Surgical History S/P cataract extraction History of mitral valve replacement (~2003) History of lumpectomy (~2012) History of hip replacement (~2012) Status post coronary artery bypass graft (~2003) Exam Narrative Exam Narrative: GENERAL: [80] year old patient appears stated age. Well-developed patient, in mild distress. HEAD: Atraumatic. Normocephalic. EYES: Pupils equal round and reactive. Extraocular motions intact. No scleral icterus. No injection or drainage. NECK: Trachea midline. Non tender CARDIOVASCULAR: Regular rate and rhythm without murmurs, gallops, or rubs. RESPIRATORY: Clear to auscultation. Breath sounds equal bilaterally. No wheezes, rales, or rhonchi. GASTROINTESTINAL: Abdomen soft, non-tender, nondistended. EXTREMITIES: No edema or joint tenderness. BACK: Nontender without deformity or crepitance. No flank tenderness. NEURO: AOx3. SKIN: No rash or erythema of visible areas Initial Vital Signs Initial Vital Signs: Vital Signs Temperature 97.7 F 09/10/25 06:48 Pulse Rate 68 09/10/25 06:48 Respiratory Rate 18 09/10/25 06:48 Blood Pressure 219/93 H 09/10/25 06:48 Pulse Oximetry 96 09/10/25 06:48 Oxygen Delivery Method Room Air 09/10/25 06:48 Course Orders Ordered: Discontinued Medications Ciprofloxacin (Ciprofloxacin 250 Mg Tablet) 500 mg PO NOW ONE Stop: 09/10/25 06:49 Last Admin: 09/10/25 06:58 Dose: 500 mg Documented By: AM MDM - Female Genitourinary Lab Data Labs: Lab Results 09/10/25 Range/Units 06:35 Urine RBC 10-30/hpf H (0-5/HPF) Urine WBC 30-100/hpf H (0-5/HPF) Ur Squamous Epith Cells 1-5 /hpf (0-5/HPF) Urine Bacteria Many (>30) H (None) Ur Culture Indicated? Cult not indicated Vol Urine Centrifuged 10ml (spun) Urine Dip Bedside Urine Glucose Negative Bedside Urine Bilirubin - Negative Bedside Urine Ketone - Negative Urine Specific [place] 1.030 Bedside Urine Occult Blood +++ Bedside Urine pH 7.5 Bedside Urine Protein + 30 Bedside Urine Urobilinogen - Negative Bedside Urine Nitrite - Negative Bedside Urine Leukocytes +++ 500 Esterase [facility] Narrative Medical decision making narrative: Vital signs, nurse triage note, medication list, previous ER visits, and all imaging studies reviewed. UA showed positive leukocyte, +blood. Patient reports Cipro as the only antibiotic that works for her and sulfa makes her face swell. DC home on Cipro 500 mg b.i.d. x5 days. Differential diagnosis UTI, sepsis, kidney stone, kidney infection. Discharge Plan Departure Patient Disposition: Home Clinical Impression: Acute UTI Instructions: DI for Urinary Tract Infection (UTI) Activity Restrictions/Additional Instructions: Return with new or worsening symptoms. Take your medicines as directed. Follow up PCP in 1-2 weeks if no improvement in symptoms. Prescriptions: New ciprofloxacin HCl [Cipro] 500 mg tablet 500 mg PO BID Qty: 10 0RF No Action aspirin [Adult Low Dose Aspirin] 81 mg tablet,delayed release (DR/EC) 81 mg PO DAILY atenolol 25 mg tablet 25 mg PO DAILY Qty: 100 3RF losartan 100 mg tablet 100 mg PO DAILY Qty: 100 3RF atorvastatin 40 mg tablet 40 mg PO ONCE PM Referrals: Carlo Camarillo DO [Primary Care Provider, Family Practice] Stand Alone Forms: Patient Portal/API
[2025-09-10 06:48] VITALS: BP 219/93; PULSE 68; RESP 18; TEMP 36.5; O2SAT 96; BMI 30.3
[2025-09-10] MEDS: CIPROFLOXACIN 250 MG TABLET 500 MG PO (06:58)
[2025-09-10 06:59] LABS: Culture Indicated Urine Cult Not Indicated
[2025-09-10 07:02] VITALS: BP 159/70; PULSE 62; RESP 20; O2SAT 98
== END 2025-09-10 07:04 | disposition home or self-care (01) ==
PROVIDERS: Emergency Provider Family Medicine; PCP Family Medicine
DX: N39.0 Urinary tract infection, site not specified (principal); B96.20 Unspecified Escherichia coli [E. coli] as the cause of diseases classified elsewhere
CPT/HCPCS: 81003; 81015; 87077; 87086; 87186; 99283